=== PATIENT | female | born 1960 | race Caucasian/White ===

== ENCOUNTER → 2020-04-23 11:34 | Outpatient (BNVA) | payer OTHER, SELFPAY | PROVIDERS: PCP Internal Medicine; Referring Provider Internal Medicine; Visit Provider Student in an Organized Health Care Education/Training Program | DX: M06.00 Rheumatoid arthritis without rheumatoid factor, unspecified site (principal); M79.7 Fibromyalgia; Z79.899 Other long term (current) drug therapy | CPT/HCPCS: 99214 ==

== ENCOUNTER → 2020-07-28 13:25 | Outpatient (BNVA) | payer OTHER, SELFPAY | PROVIDERS: PCP Internal Medicine; Referring Provider Internal Medicine; Visit Provider Student in an Organized Health Care Education/Training Program | DX: Z13.89 Encounter for screening for other disorder (principal) | CPT/HCPCS: Q3014 ==

== ENCOUNTER 2020-08-03 11:02 | Outpatient (REF) | payer OTHER, SELFPAY ==
--- NOTE | 2020-08-03 11:26 | XR_ITS ---
EXAMINATION: BILATERAL KNEE X-RAY CLINICAL INFORMATION: Rheumatoid arthritis COMPARISON: Previous x-rays December 2015 TECHNIQUE: 3 views of each knee FINDINGS: Right: No fracture or dislocation is seen. There is mild valgus angulation at the knee joint. There is arthritis at the medial femoral tibial and patellofemoral joints with joint space narrowing and osteophyte formation. There is no appreciable joint effusion. Left: Bone alignment is normal. No fracture or dislocation is seen. There are small osteophytes at the patellofemoral and femoral tibial joint. There is mild joint space narrowing at the medial femoral tibial joint. There is no significant joint effusion. XR/XR knee LT 3V IMPRESSION: Bilateral osteoarthritis, right greater than left.
--- NOTE | 2020-08-03 11:26 | XR_ITS ---
EXAMINATION: BILATERAL KNEE X-RAY CLINICAL INFORMATION: Rheumatoid arthritis COMPARISON: Previous x-rays December 2015 TECHNIQUE: 3 views of each knee FINDINGS: Right: No fracture or dislocation is seen. There is mild valgus angulation at the knee joint. There is arthritis at the medial femoral tibial and patellofemoral joints with joint space narrowing and osteophyte formation. There is no appreciable joint effusion. Left: Bone alignment is normal. No fracture or dislocation is seen. There are small osteophytes at the patellofemoral and femoral tibial joint. There is mild joint space narrowing at the medial femoral tibial joint. There is no significant joint effusion. XR/XR knee RT 3V IMPRESSION: Bilateral osteoarthritis, right greater than left.
[2020-08-03 11:55] LABS: MANUAL DIFF FLAG NO
[2020-08-03 11:57] LABS: Basophils Absolute Auto 0.1 X10*3/uL (0.0-0.2); Basophils Percent Auto 0.9 % (0-2); Eosinophils Absolute Auto 0.1 X10*3/uL (0.0-0.4); Hemoglobin 11.1 g/dl (12.0-16.0); Imm Gran Abs Auto 0.02 X10*3/uL (0.00-0.03); Imm Gran Pct Auto 0.4 % (0.0-0.4); Lymphocytes Absolute Auto 1.9 X10*3/uL (1.2-4.9); Lymphocytes Percent Auto 33.8 % (20-40); Mean Corpuscular HGB Conc 31.7 g/dl (31.0-35.0); Mean Corpuscular Volume 94.6 fL (80-98); Mean Platelet Volume 11.2 fL (9.4-12.3); Monocytes Absolute Auto 0.3 X10*3/uL (0.1-1.2); Monocytes Percent Auto 5.7 % (2-11); Neutrophils Absolute Auto 3.2 X10*3/uL (2.0-8.3); Neutrophils Percent Auto 57.2 % (45-73); Platelet Count 225 X10*3/uL (160-400); Red Cell Distribution Width 13.8 % (11.0-16.0); White Blood Count 5.6 X10*3/uL (4.8-10.8)
[2020-08-03 12:24] LABS: Alanine Aminotransferase 16 U/L (0-31); Albumin Level 3.8 g/dL (3.5-5.0); Alkaline Phosphatase 67 U/L (39-117); Anion Gap 11 (12-20); Aspartate Amino Transferase 17 U/L (5-31); Bilirubin Total 0.4 mg/dL (0.0-1.0); Blood Urea Nitrogen 20 mg/dL (9-16); C Reactive Protein 0.04 mg/dL (< or = 0.50); Calcium 8.8 mg/dL (8.4-10.2); Carbon Dioxide 29 mmol/L (22-29); Chloride 106 mmol/L (96-108); Estimated Glomerular Filt Rate > 60; Glucose Random 96 mg/dL (60-115); Potassium 4.5 mmol/l (3.3-5.1); Sodium 141 mmol/L (135-145); Total Protein 6.3 g/dL (6.5-8.0)
[2020-08-03 13:30] LABS: Erythrocyte Sedimentation Rate 16 MM/HR (0-20)
== END 2020-08-03 11:03 | disposition home or self-care (01) ==
LOC: HO.LAB 11:02
PROVIDERS: PCP Internal Medicine; Visit Provider Student in an Organized Health Care Education/Training Program
DX: M06.00 Rheumatoid arthritis without rheumatoid factor, unspecified site (principal)
CPT/HCPCS: 36415; 73562; 80053; 85025; 85652; 86140

== ENCOUNTER → 2020-09-25 14:10 | Outpatient (BNVA) | payer OTHER, SELFPAY | PROVIDERS: PCP Internal Medicine; Visit Provider Student in an Organized Health Care Education/Training Program | DX: M06.00 Rheumatoid arthritis without rheumatoid factor, unspecified site (principal); M79.7 Fibromyalgia; Z79.899 Other long term (current) drug therapy | CPT/HCPCS: 99212 ==

== ENCOUNTER 2021-01-15 10:36 | Outpatient (REF) | payer OTHER, SELFPAY ==
[2021-01-15 11:14] LABS: MANUAL DIFF FLAG NO
[2021-01-15 11:30] LABS: Basophils Absolute Auto 0.1 X10*3/uL (0.0-0.2); Eosinophils Absolute Auto 0.2 X10*3/uL (0.0-0.4); Eosinophils Percent Auto 3.2 % (0-4); Hematocrit 36.1 % (37-47); Hemoglobin 11.5 g/dl (12.0-16.0); Imm Gran Abs Auto 0.01 X10*3/uL (0.00-0.03); Imm Gran Pct Auto 0.2 % (0.0-0.4); Lymphocytes Absolute Auto 1.8 X10*3/uL (1.2-4.9); Lymphocytes Percent Auto 35.7 % (20-40); Mean Corpuscular HGB Conc 31.9 g/dl (31.0-35.0); Mean Corpuscular Volume 94.3 fL (80-98); Mean Platelet Volume 10.8 fL (9.4-12.3); Monocytes Absolute Auto 0.3 X10*3/uL (0.1-1.2); Monocytes Percent Auto 6.6 % (2-11); Neutrophils Absolute Auto 2.7 X10*3/uL (2.0-8.3); Neutrophils Percent Auto 53.3 % (45-73); Platelet Count 234 X10*3/uL (160-400); Red Blood Count 3.83 X10*6/uL (4.20-5.50)
[2021-01-15 12:00] LABS: C Reactive Protein 0.05 mg/dL (< or = 0.50)
[2021-01-15 12:03] LABS: Potassium 4.4 mmol/L (3.3-5.1)
[2021-01-15 12:05] LABS: Alanine Aminotransferase 11 U/L (0-31); Albumin Level 3.8 g/dL (3.5-5.0); Alkaline Phosphatase 68 U/L (39-117); Anion Gap 8 (12-20); Aspartate Amino Transferase 16 U/L (5-31); Bilirubin Total 0.6 mg/dL (0.0-1.0); Blood Urea Nitrogen 18 mg/dL (9-16); Calcium 9.2 mg/dL (8.4-10.2); Carbon Dioxide 29 mmol/L (22-29); Chloride 107 mmol/L (96-108); Estimated Glomerular Filt Rate > 60; Glucose Random 77 mg/dL (60-115); Sodium 140 mmol/L (135-145); Total Protein 6.2 g/dL (6.5-8.0)
[2021-01-15 12:20] LABS: Erythrocyte Sedimentation Rate 14 MM/HR (0-20)
== END 2021-01-15 10:37 | disposition home or self-care (01) ==
LOC: HO.LAB 10:36
PROVIDERS: PCP Internal Medicine; Visit Provider Student in an Organized Health Care Education/Training Program
DX: M06.00 Rheumatoid arthritis without rheumatoid factor, unspecified site (principal)
CPT/HCPCS: 36415; 80053; 85025; 85652; 86140

== ENCOUNTER → 2021-01-20 12:13 | Outpatient (BNVA) | payer OTHER, SELFPAY | PROVIDERS: PCP Internal Medicine; Visit Provider Student in an Organized Health Care Education/Training Program | DX: M06.00 Rheumatoid arthritis without rheumatoid factor, unspecified site (principal); M79.7 Fibromyalgia; Z79.899 Other long term (current) drug therapy | CPT/HCPCS: 99212 ==

== ENCOUNTER 2021-06-25 08:47 | Outpatient (REF) | payer OTHER, SELFPAY ==
[2021-06-25 09:44] LABS: MANUAL DIFF FLAG NO
[2021-06-25 09:58] LABS: Basophils Percent Auto 0.8 % (0-2); Eosinophils Absolute Auto 0.2 X10*3/uL (0.0-0.4); Eosinophils Percent Auto 4.3 % (0-4); Hematocrit 35.7 % (37.0-47.0); Hemoglobin 11.6 g/dl (12.0-16.0); Imm Gran Abs Auto 0.01 X10*3/uL (0.00-0.03); Imm Gran Pct Auto 0.2 % (0.0-0.4); Lymphocytes Percent Auto 36.7 % (20-40); Mean Corpuscular HGB Conc 32.5 g/dl (31.0-35.0); Mean Corpuscular Hemoglobin 30.4 pg (27.0-33.0); Mean Corpuscular Volume 93.7 fL (80.0-98.0); Mean Platelet Volume 10.6 fL (9.4-12.3); Monocytes Absolute Auto 0.4 X10*3/uL (0.1-1.2); Neutrophils Absolute Auto 2.7 x10*3/uL (2.0-8.3); Platelet Count 242 X10*3/uL (160-400); Red Blood Count 3.81 X10*6/uL (4.20-5.50); Red Cell Distribution Width 13.9 % (11.0-16.0); White Blood Count 5.3 X10*3/uL (4.8-10.8)
[2021-06-25 10:35] LABS: Alanine Aminotransferase 16 U/L (0-31); Alkaline Phosphatase 106 U/L (39-117); Anion Gap 10 (12-20); Aspartate Amino Transferase 19 U/L (5-31); Bilirubin Total 0.6 mg/dL (0.0-1.0); Blood Urea Nitrogen 16 mg/dL (9-16); C Reactive Protein 0.04 mg/dL (< or = 0.50); Calcium 9.4 mg/dL (8.4-10.2); Carbon Dioxide 26 mmol/L (22-29); Chloride 109 mmol/L (96-108); Estimated Glomerular Filt Rate > 60; Glucose Random 93 mg/dL (60-115); Potassium 4.2 mmol/L (3.3-5.1); Sodium 141 mmol/L (135-145); Total Protein 6.7 g/dL (6.5-8.0)
[2021-06-25 10:38] LABS: Erythrocyte Sedimentation Rate 16 MM/HR (0-20)
== END 2021-06-25 08:48 | disposition home or self-care (01) ==
LOC: HO.LAB 08:47
PROVIDERS: PCP Internal Medicine; Visit Provider Nurse Practitioner Family
DX: M06.00 Rheumatoid arthritis without rheumatoid factor, unspecified site (principal); M79.7 Fibromyalgia; Z79.899 Other long term (current) drug therapy
CPT/HCPCS: 36415; 80053; 85025; 85652; 86140; 99212

== ENCOUNTER 2021-09-23 10:49 | Outpatient (REF) | payer OTHER, SELFPAY ==
[2021-09-23 11:33] LABS: MANUAL DIFF FLAG NO
[2021-09-23 11:44] LABS: Basophils Percent Auto 0.7 % (0-2); Eosinophils Absolute Auto 0.2 X10*3/uL (0.0-0.4); Eosinophils Percent Auto 4.3 % (0-4); Hemoglobin 11.8 g/dl (12.0-16.0); Imm Gran Abs Auto 0.02 X10*3/uL (0.00-0.03); Imm Gran Pct Auto 0.4 % (0.0-0.4); Lymphocytes Absolute Auto 2.1 X10*3/uL (1.2-4.9); Lymphocytes Percent Auto 36.7 % (20-40); Mean Corpuscular HGB Conc 31.9 g/dl (31.0-35.0); Mean Corpuscular Hemoglobin 30.2 pg (27.0-33.0); Mean Corpuscular Volume 94.6 fL (80.0-98.0); Mean Platelet Volume 10.6 fL (9.4-12.3); Monocytes Absolute Auto 0.3 X10*3/uL (0.1-1.2); Monocytes Percent Auto 5.9 % (2-11); Neutrophils Absolute Auto 2.9 x10*3/uL (2.0-8.3); Platelet Count 246 X10*3/uL (160-400); Red Blood Count 3.91 X10*6/uL (4.20-5.50); Red Cell Distribution Width 13.9 % (11.0-16.0); White Blood Count 5.6 X10*3/uL (4.8-10.8)
[2021-09-23 12:33] LABS: Erythrocyte Sedimentation Rate 13 MM/HR (0-20)
[2021-09-23 13:16] LABS: Alanine Aminotransferase 11 U/L (0-31); Alkaline Phosphatase 77 U/L (39-117); Anion Gap 9 (12-20); Aspartate Amino Transferase 16 U/L (5-31); Bilirubin Total 0.6 mg/dL (0.0-1.0); Blood Urea Nitrogen 19 mg/dL (9-16); C Reactive Protein 0.03 mg/dL (< or = 0.50); Calcium 9.3 mg/dL (8.4-10.2); Carbon Dioxide 30 mmol/L (22-29); Chloride 108 mmol/L (96-108); Estimated Glomerular Filt Rate > 60; Glucose Random 80 mg/dL (60-115); Potassium 4.7 mmol/L (3.3-5.1); Sodium 142 mmol/L (135-145); Total Protein 6.7 g/dL (6.5-8.0)
== END 2021-09-23 10:50 | disposition home or self-care (01) ==
LOC: HO.LAB 10:49
PROVIDERS: PCP Internal Medicine; Visit Provider Nurse Practitioner Family
DX: M06.00 Rheumatoid arthritis without rheumatoid factor, unspecified site (principal); M79.7 Fibromyalgia; Z79.899 Other long term (current) drug therapy
CPT/HCPCS: 36415; 80053; 85025; 85652; 86140; 99212

== ENCOUNTER 2022-04-11 12:33 | Outpatient (REF) | payer OTHER, SELFPAY ==
[2022-04-11 12:56] LABS: MANUAL DIFF FLAG NO
[2022-04-11 13:13] LABS: Basophils Absolute Auto 0.1 X10*3/uL (0.0-0.2); Eosinophils Absolute Auto 0.2 X10*3/uL (0.0-0.4); Eosinophils Percent Auto 3.4 % (0-4); Hematocrit 33.9 % (37.0-47.0); Hemoglobin 10.9 g/dl (12.0-16.0); Imm Gran Abs Auto 0.02 X10*3/uL (0.00-0.03); Imm Gran Pct Auto 0.3 % (0.0-0.4); Lymphocytes Absolute Auto 1.7 X10*3/uL (1.2-4.9); Lymphocytes Percent Auto 28.8 % (20-40); Mean Corpuscular HGB Conc 32.2 g/dl (31.0-35.0); Mean Corpuscular Volume 93.4 fL (80.0-98.0); Mean Platelet Volume 10.4 fL (9.4-12.3); Monocytes Absolute Auto 0.4 X10*3/uL (0.1-1.2); Monocytes Percent Auto 6.5 % (2-11); Neutrophils Absolute Auto 3.5 x10*3/uL (2.0-8.3); Platelet Count 240 X10*3/uL (160-400); Red Blood Count 3.63 X10*6/uL (4.20-5.50); Red Cell Distribution Width 13.7 % (11.0-16.0); White Blood Count 5.9 X10*3/uL (4.8-10.8)
[2022-04-11 13:54] LABS: Erythrocyte Sedimentation Rate 21 MM/HR (0-20)
[2022-04-11 14:04] LABS: Alanine Aminotransferase 13 U/L (0-31); Albumin Level 3.8 g/dL (3.5-5.0); Alkaline Phosphatase 77 U/L (39-117); Anion Gap 12 (12-20); Aspartate Amino Transferase 16 U/L (5-31); Bilirubin Total 0.3 mg/dL (0.0-1.0); Blood Urea Nitrogen 15 mg/dL (9-16); C Reactive Protein 0.06 mg/dL (< or = 0.50); Calcium 8.8 mg/dL (8.4-10.2); Carbon Dioxide 25 mmol/L (22-29); Chloride 108 mmol/L (96-108); Estimated Glomerular Filt Rate > 60; Glucose Random 79 mg/dL (60-115); Potassium 3.9 mmol/L (3.3-5.1); Sodium 141 mmol/L (135-145); Total Protein 6.3 g/dL (6.5-8.0)
== END 2022-04-11 12:34 | disposition home or self-care (01) ==
LOC: HO.LAB 12:33
PROVIDERS: Visit Provider Nurse Practitioner Family
DX: M06.00 Rheumatoid arthritis without rheumatoid factor, unspecified site (principal)
CPT/HCPCS: 36415; 80053; 85025; 85652; 86140

== ENCOUNTER 2022-04-12 10:50 | Outpatient (REF) | payer OTHER, SELFPAY ==
[2022-04-12 13:38] LABS: MANUAL DIFF FLAG NO
[2022-04-12 13:43] LABS: Basophils Absolute Auto 0.1 X10*3/uL (0.0-0.2); Basophils Percent Auto 0.9 % (0-2); Eosinophils Absolute Auto 0.2 X10*3/uL (0.0-0.4); Eosinophils Percent Auto 3.9 % (0-4); Hematocrit 35.1 % (37.0-47.0); Hemoglobin 11.3 g/dl (12.0-16.0); Imm Gran Abs Auto 0.01 X10*3/uL (0.00-0.03); Imm Gran Pct Auto 0.2 % (0.0-0.4); Lymphocytes Absolute Auto 1.7 X10*3/uL (1.2-4.9); Lymphocytes Percent Auto 31.8 % (20-40); Mean Corpuscular HGB Conc 32.2 g/dl (31.0-35.0); Mean Corpuscular Hemoglobin 30.1 pg (27.0-33.0); Mean Corpuscular Volume 93.6 fL (80.0-98.0); Monocytes Absolute Auto 0.3 X10*3/uL (0.1-1.2); Monocytes Percent Auto 5.9 % (2-11); Neutrophils Absolute Auto 3.1 x10*3/uL (2.0-8.3); Neutrophils Percent Auto 57.3 % (45-73); Platelet Count 247 X10*3/uL (160-400); Red Blood Count 3.75 X10*6/uL (4.20-5.50); Red Cell Distribution Width 13.7 % (11.0-16.0); White Blood Count 5.4 X10*3/uL (4.8-10.8)
[2022-04-12 13:59] LABS: Alanine Aminotransferase 14 U/L (0-31); Aspartate Amino Transferase 18 U/L (5-31); C Reactive Protein 0.05 mg/dL (< or = 0.50); Estimated Glomerular Filt Rate > 60
[2022-04-12 14:30] LABS: Erythrocyte Sedimentation Rate 20 MM/HR (0-20)
== END 2022-04-12 10:51 | disposition home or self-care (01) ==
LOC: HO.10HDL 10:50
PROVIDERS: Visit Provider Nurse Practitioner Family
DX: M06.00 Rheumatoid arthritis without rheumatoid factor, unspecified site (principal); Z79.899 Other long term (current) drug therapy
CPT/HCPCS: 36415; 82565; 84450; 84460; 85025; 85652; 86140; 99212

== ENCOUNTER 2022-07-11 11:22 | Outpatient (REF) | payer OTHER, SELFPAY ==
[2022-07-11 11:34] LABS: MANUAL DIFF FLAG NO
[2022-07-11 11:43] LABS: Basophils Percent Auto 0.8 % (0-2); Eosinophils Absolute Auto 0.2 X10*3/uL (0.0-0.4); Eosinophils Percent Auto 4.1 % (0-4); Hematocrit 34.7 % (37.0-47.0); Hemoglobin 11.3 g/dl (12.0-16.0); Imm Gran Abs Auto 0.02 X10*3/uL (0.00-0.03); Imm Gran Pct Auto 0.4 % (0.0-0.4); Lymphocytes Percent Auto 19.1 % (20-40); Mean Corpuscular HGB Conc 32.6 g/dl (31.0-35.0); Mean Corpuscular Hemoglobin 30.1 pg (27.0-33.0); Mean Corpuscular Volume 92.5 fL (80.0-98.0); Monocytes Absolute Auto 0.5 X10*3/uL (0.1-1.2); Monocytes Percent Auto 10.5 % (2-11); Neutrophils Absolute Auto 3.3 x10*3/uL (2.0-8.3); Neutrophils Percent Auto 65.1 % (45-73); Platelet Count 236 X10*3/uL (160-400); Red Blood Count 3.75 X10*6/uL (4.20-5.50); Red Cell Distribution Width 13.8 % (11.0-16.0); White Blood Count 5.1 X10*3/uL (4.8-10.8)
[2022-07-11 12:22] LABS: Erythrocyte Sedimentation Rate 23 MM/HR (0-20)
[2022-07-11 12:36] LABS: Alanine Aminotransferase 12 U/L (0-31); Aspartate Amino Transferase 17 U/L (5-31); Estimated Glomerular Filt Rate > 60; Ferritin 75 ng/mL (10-250); Iron 39 mcg/dL (30-160); Percent Iron Saturation 18 % (15-50); Total Iron Binding Capacity 218 mcg/dL (228-428); Unsaturated Iron Binding 179 ug/dL
[2022-07-11 13:04] LABS: Folate 14.7 ng/mL (> or = 4.0); Vitamin B12 > 2000 pg/mL (200-900)
== END 2022-07-11 11:23 | disposition home or self-care (01) ==
LOC: HO.LAB 11:22
PROVIDERS: Visit Provider Nurse Practitioner Family
DX: D64.9 Anemia, unspecified (principal); M06.00 Rheumatoid arthritis without rheumatoid factor, unspecified site; Z79.899 Other long term (current) drug therapy
CPT/HCPCS: 36415; 82565; 82607; 82728; 82746; 83540; 84450; 84460; 85025; 85652; 86140

== ENCOUNTER → 2022-08-09 13:05 | Outpatient (BNVA) | payer OTHER, SELFPAY | PROVIDERS: Visit Provider Nurse Practitioner Family | DX: M06.00 Rheumatoid arthritis without rheumatoid factor, unspecified site (principal); M79.7 Fibromyalgia; M79.18 Myalgia, other site; D64.9 Anemia, unspecified; Z79.899 Other long term (current) drug therapy | CPT/HCPCS: 99212 ==

== ENCOUNTER 2022-08-12 10:36 | Outpatient (REF) | payer OTHER, SELFPAY ==
--- NOTE | ~2022-08-12 | XR_ITS ---
EXAMINATION: XR SACROILIAC JOINTS CLINICAL INFORMATION: Meralgia COMPARISON: None TECHNIQUE: Four views of the sacroiliac joints FINDINGS: Mild loss of bilateral sacroiliac joint space with subchondral sclerosis. Sclerosis and irregularity of the pubic symphysis. No acute fracture or dislocation. Few calcified phleboliths in the pelvis. XR/XR sacroiliac joint min 3V IMPRESSION: Mild loss of bilateral sacroiliac joint space with subchondral sclerosis which could be seen in setting of degenerative change, sacroiliitis, or osteitis condensans ilii. Sclerosis and irregularity of the pubic symphysis, which may reflect osteitis pubis.
== END 2022-08-12 10:37 | disposition home or self-care (01) ==
LOC: HO.XRAY 10:36
PROVIDERS: Visit Provider Nurse Practitioner Family
DX: M79.18 Myalgia, other site (principal)
CPT/HCPCS: 72202

== ENCOUNTER 2022-10-25 13:52 | Outpatient (REF) | payer OTHER, SELFPAY ==
--- NOTE | ~2022-10-25 | XR_ITS ---
EXAMINATION: XR HAND/WRIST, RIGHT CLINICAL INFORMATION: Pain. COMPARISON: None available. TECHNIQUE: PA, lateral, and oblique views of the right hand and wrist, together with a dedicated navicular view. FINDINGS: The bones and soft tissues are normal. No fracture. Alignment is anatomic. Joint spaces are maintained. No erosions or soft tissue calcifications. XR/XR hand wrist RT IMPRESSION: Normal radiographs of the hand and wrist. EXAMINATION: XR HAND/WRIST, LEFT CLINICAL INFORMATION: Pain. COMPARISON: None available. TECHNIQUE: PA, lateral, and oblique views of the left hand and wrist, together with a dedicated navicular view. FINDINGS: The bones and soft tissues are normal. No fracture. Alignment is anatomic. Joint spaces are maintained. No erosions or soft tissue calcifications.
--- NOTE | ~2022-10-25 | XR_ITS ---
EXAMINATION: XR HAND/WRIST, RIGHT CLINICAL INFORMATION: Pain. COMPARISON: None available. TECHNIQUE: PA, lateral, and oblique views of the right hand and wrist, together with a dedicated navicular view. FINDINGS: The bones and soft tissues are normal. No fracture. Alignment is anatomic. Joint spaces are maintained. No erosions or soft tissue calcifications. XR/XR hand wrist LT IMPRESSION: Normal radiographs of the hand and wrist. EXAMINATION: XR HAND/WRIST, LEFT CLINICAL INFORMATION: Pain. COMPARISON: None available. TECHNIQUE: PA, lateral, and oblique views of the left hand and wrist, together with a dedicated navicular view. FINDINGS: The bones and soft tissues are normal. No fracture. Alignment is anatomic. Joint spaces are maintained. No erosions or soft tissue calcifications.
[2022-10-25 15:00] LABS: MANUAL DIFF FLAG NO
[2022-10-25 15:16] LABS: Basophils Absolute Auto 0.1 X10*3/uL (0.0-0.2); Basophils Percent Auto 0.8 % (0-2); Eosinophils Absolute Auto 0.2 X10*3/uL (0.0-0.4); Eosinophils Percent Auto 3.4 % (0-4); Hematocrit 34.6 % (37.0-47.0); Hemoglobin 11.1 g/dl (12.0-16.0); Imm Gran Abs Auto 0.06 X10*3/uL (0.00-0.03); Imm Gran Pct Auto 0.9 % (0.0-0.4); Lymphocytes Absolute Auto 1.8 X10*3/uL (1.2-4.9); Lymphocytes Percent Auto 27.4 % (20-40); Mean Corpuscular HGB Conc 32.1 g/dl (31.0-35.0); Mean Corpuscular Volume 93.5 fL (80.0-98.0); Mean Platelet Volume 10.7 fL (9.4-12.3); Monocytes Absolute Auto 0.4 X10*3/uL (0.1-1.2); Monocytes Percent Auto 5.6 % (2-11); Neutrophils Percent Auto 61.9 % (45-73); Platelet Count 257 X10*3/uL (160-400); Red Cell Distribution Width 13.9 % (11.0-16.0); White Blood Count 6.5 X10*3/uL (4.8-10.8)
[2022-10-25 15:50] LABS: Alanine Aminotransferase 9 U/L (0-31); Albumin Level 3.8 g/dL (3.5-5.0); Alkaline Phosphatase 89 U/L (39-117); Anion Gap 9 (12-20); Aspartate Amino Transferase 14 U/L (5-31); Bilirubin Total 0.4 mg/dL (0.0-1.0); Blood Urea Nitrogen 16 mg/dL (9-16); Calcium 8.8 mg/dL (8.4-10.2); Carbon Dioxide 27 mmol/L (22-29); Chloride 110 mmol/L (96-108); Estimated Glomerular Filt Rate > 60; Glucose Random 100 mg/dL (60-115); Potassium 4.4 mmol/L (3.3-5.1); Sodium 142 mmol/L (135-145); Total Protein 6.3 g/dL (6.5-8.0)
[2022-10-25 15:57] LABS: Erythrocyte Sedimentation Rate 25 MM/HR (0-20)
[2022-10-26 07:42] LABS: HBS Num1 0.38 mIU/mL (0-7.99); HBc Num1 0.11 S/CO (0.00-0.79); HBsAGNum1 0.28 S/CO (0.00-0.99); Hepatitis A Antibody IgM 0.51 Index (0-0.79); Hepatitis B Core Antibody Nonreactive (Nonreactive); Hepatitis B Surface Antigen Negative (Negative); ~HepC Num1 0.11 S/CO (0.00-0.79); ~Hepatitis A Antibody IgM Nonreactive (Nonreactive); ~Hepatitis B Surface Antibody NONREACTIVE (Nonreactive); ~Hepatitis C Antibody Nonreactive (Nonreactive)
[2022-10-27 15:13] LABS: TS Negative Control Passed; TS Panel A 0; TS Panel B 3; TS Positive Control Passed; TSpotTB Negative (Negative)
== END 2022-10-25 13:53 | disposition home or self-care (01) ==
LOC: HO.LAB 13:52
PROVIDERS: Visit Provider Nurse Practitioner Family
DX: M79.641 Pain in right hand (principal); M79.642 Pain in left hand; M06.00 Rheumatoid arthritis without rheumatoid factor, unspecified site; M79.7 Fibromyalgia; D64.9 Anemia, unspecified; Z79.899 Other long term (current) drug therapy
CPT/HCPCS: 36415; 73110; 73130; 80053; 85025; 85652; 86140; 86481; 86704; 86706; 86709; 86803; 87340; 99212

== ENCOUNTER 2022-12-02 11:47 | Outpatient (REF) | payer OTHER, SELFPAY ==
[2022-12-02 12:08] LABS: MANUAL DIFF FLAG NO
[2022-12-02 13:16] LABS: Basophils Absolute Auto 0.1 X10*3/uL (0.0-0.2); Basophils Percent Auto 0.7 % (0-2); Eosinophils Absolute Auto 0.2 X10*3/uL (0.0-0.4); Eosinophils Percent Auto 2.7 % (0-4); Hematocrit 34.4 % (37.0-47.0); Imm Gran Abs Auto 0.03 X10*3/uL (0.00-0.03); Imm Gran Pct Auto 0.4 % (0.0-0.4); Lymphocytes Percent Auto 28.3 % (20-40); Mean Corpuscular Hemoglobin 29.8 pg (27.0-33.0); Mean Corpuscular Volume 93.2 fL (80.0-98.0); Mean Platelet Volume 10.2 fL (9.4-12.3); Monocytes Absolute Auto 0.4 X10*3/uL (0.1-1.2); Monocytes Percent Auto 5.5 % (2-11); Neutrophils Absolute Auto 4.4 x10*3/uL (2.0-8.3); Neutrophils Percent Auto 62.4 % (45-73); Platelet Count 311 X10*3/uL (160-400); Red Blood Count 3.69 X10*6/uL (4.20-5.50); Red Cell Distribution Width 13.6 % (11.0-16.0); White Blood Count 7.1 X10*3/uL (4.8-10.8)
[2022-12-02 13:53] LABS: Alanine Aminotransferase 11 U/L (0-31); Albumin Level 3.8 g/dL (3.5-5.0); Alkaline Phosphatase 88 U/L (39-117); Anion Gap 8 (12-20); Aspartate Amino Transferase 16 U/L (5-31); Bilirubin Total 0.4 mg/dL (0.0-1.0); Blood Urea Nitrogen 16 mg/dL (9-16); Calcium 8.6 mg/dL (8.4-10.2); Carbon Dioxide 28 mmol/L (22-29); Chloride 111 mmol/L (96-108); Estimated Glomerular Filt Rate > 60; Glucose Random 71 mg/dL (60-115); Potassium 4.1 mmol/L (3.3-5.1); Sodium 143 mmol/L (135-145); Total Protein 6.5 g/dL (6.5-8.0)
[2022-12-02 14:00] LABS: Erythrocyte Sedimentation Rate 34 MM/HR (0-20)
== END 2022-12-02 11:48 | disposition home or self-care (01) ==
LOC: HO.LAB 11:47
PROVIDERS: Visit Provider Nurse Practitioner Family
DX: M06.00 Rheumatoid arthritis without rheumatoid factor, unspecified site (principal)
CPT/HCPCS: 36415; 80053; 85025; 85652; 86140

== ENCOUNTER → 2022-12-06 14:16 | Outpatient (BNVA) | payer OTHER, SELFPAY | PROVIDERS: Visit Provider Nurse Practitioner Family | DX: M06.00 Rheumatoid arthritis without rheumatoid factor, unspecified site (principal); M79.7 Fibromyalgia; D64.9 Anemia, unspecified; Z79.899 Other long term (current) drug therapy | CPT/HCPCS: 99212 ==

== ENCOUNTER 2023-03-10 11:23 | Outpatient (REF) | payer OTHER, SELFPAY ==
[2023-03-10 11:30] LABS: MANUAL DIFF FLAG NO
[2023-03-10 11:44] LABS: Basophils Percent Auto 0.6 % (0-2); Eosinophils Absolute Auto 0.2 X10*3/uL (0.0-0.4); Eosinophils Percent Auto 2.4 % (0-4); Hematocrit 35.1 % (37.0-47.0); Hemoglobin 11.4 g/dl (12.0-16.0); Imm Gran Abs Auto 0.02 X10*3/uL (0.00-0.03); Imm Gran Pct Auto 0.3 % (0.0-0.4); Lymphocytes Absolute Auto 1.4 X10*3/uL (1.2-4.9); Lymphocytes Percent Auto 19.3 % (20-40); Mean Corpuscular HGB Conc 32.5 g/dl (31.0-35.0); Mean Corpuscular Hemoglobin 29.6 pg (27.0-33.0); Mean Corpuscular Volume 91.2 fL (80.0-98.0); Mean Platelet Volume 10.2 fL (9.4-12.3); Monocytes Absolute Auto 0.4 X10*3/uL (0.1-1.2); Monocytes Percent Auto 5.9 % (2-11); Neutrophils Absolute Auto 5.1 x10*3/uL (2.0-8.3); Neutrophils Percent Auto 71.5 % (45-73); Platelet Count 266 X10*3/uL (160-400); Red Blood Count 3.85 X10*6/uL (4.20-5.50); Red Cell Distribution Width 13.9 % (11.0-16.0); White Blood Count 7.1 X10*3/uL (4.8-10.8)
[2023-03-10 12:26] LABS: Erythrocyte Sedimentation Rate 19 MM/HR (0-20)
[2023-03-10 12:36] LABS: Alanine Aminotransferase 10 U/L (0-31); Albumin Level 3.7 g/dL (3.5-5.0); Alkaline Phosphatase 80 U/L (39-117); Anion Gap 12 (12-20); Aspartate Amino Transferase 16 U/L (5-31); Bilirubin Total 0.5 mg/dL (0.0-1.0); Blood Urea Nitrogen 16 mg/dL (9-16); C Reactive Protein < 0.10 mg/dL (< or = 0.50); Calcium 8.8 mg/dL (8.4-10.2); Carbon Dioxide 25 mmol/L (22-29); Chloride 110 mmol/L (96-108); Estimated Glomerular Filt Rate > 60; Glucose Random 76 mg/dL (60-115); Potassium 3.6 mmol/L (3.3-5.1); Sodium 143 mmol/L (135-145); Total Protein 6.8 g/dL (6.5-8.0)
== END 2023-03-10 11:24 | disposition home or self-care (01) ==
LOC: HO.LAB 11:23
PROVIDERS: PCP Internal Medicine; Visit Provider Nurse Practitioner Family
DX: M06.00 Rheumatoid arthritis without rheumatoid factor, unspecified site (principal)
CPT/HCPCS: 36415; 80053; 85025; 85652; 86140

== ENCOUNTER 2023-03-14 09:39 | Outpatient (AMB) | payer OTHER, SELFPAY ==
[2023-03-14 09:50] VITALS: BP 124/72; PULSE 64; TEMP 36.2; O2SAT 98; BMI 28.8
--- NOTE | 2023-03-14 09:50 | MHC.OFFVIS ---
Intake Vital Signs 03/14/23 09:50 Height 4 ft 11 in Weight 142 lb 6.698 oz BMI 28.8 BP 124/72 Blood Pressure Location Rt brachial Position Sitting Pulse 64 Pulse Source Pulse Oximeter Temp 97.2 F Temp Source Skin Pulse Oximetry (%) 98 Intake Visit Reasons: Rheumatoid arthritis Intake Note: Pt seen today for RA follow up Baggage Checker Required: No Accompanied by: Self / Same As Patient Allergies No Known Allergies Allergy (Verified 03/14/23 09:52) Medication List - Last Reconciled 03/14/23 by Sandra Olson MD baclofen 10 mg PO DAILY clonazepam 0.5 mg PO BID fluoxetine 40 mg PO DAILY PRN folic acid 1 mg PO DAILY methotrexate sodium 25 mg (10 x 2.5 mg) PO QWEEK multivitamin 1 tab PO DAILY omeprazole 20 mg PO DAILY rizatriptan 5 mg PO Q2-4H PRN zolpidem 10 mg PO BEDTIME PRN HPI HPI Comments History of Present Illness Details 62yoF presents for follow-up of seronegative rheumatoid arthritis. Last seen by Flores Mancini 12/13. Currently taking methotrexate 10 tabs weekly, 5 tabs in the am and 5 tabs in the pm. She is taking her folic acid. She states that she has good days and bad days, mostly related to her fibromyalgia. She states her fibromyalgia symptoms are most bothersome at this time. She follows with a psychiatrist and therapist. She is taking fluoxetine, clonazepam, She takes Ambien as needed. She continues to walk daily. She reports pain, some swelling and redness that presents in one joint at a time. Sometimes the great toe, or the little toe, a knee or hands. She states that the pain and swelling can last 1 - 4 days and resolve without intervention. This happens about once a month. She states that since the methotrexate dose was increased to 10 tabs the frequency and severity of these episodes is reduced. PFSH Surgical History Hx of gastric bypass Family History Father Osteoarthritis Social History Alcohol intake: never Patient Tobacco Use Status: Never used Tobacco e-Cigarette/Vaping Use: Never Used Review of Systems Musc Reports myalgias and Reports arthralgias Skin/Breast Reports rash Physical Exam Vital Signs: Last Vital Signs Temp 97.2 F 03/14/23 09:50 Pulse 64 03/14/23 09:50 BP 124/72 03/14/23 09:50 Pulse Ox 98 03/14/23 09:50 BMI result Body Mass Index 28.8 Const General: cooperative, healthy appearing and comfortable Nutritional Appearance: overweight Orientation/consciousness: patient oriented x3 Limitations: no limitations HEENT Head: Yes normocephalic and Yes atraumatic Mouth: moist mucous membranes Resp Effort & Inspection: normal respiratory effort and able to speak in complete sentences Cardio Rate: regular rate Rhythm: regular rhythm Skin General skin exam: no rashes or lesions noted Neuro General: patient oriented x3 Extrem Other: No active synovitis today Numerous fibromyalgia tender points Results Reviewed Results Reviewed: Laboratory Tests MRI OF THE RIGHT HAND WITHOUT AND WITH CONTRAST ? CLINICAL INFORMATION: Seronegative arthritis. ? COMPARISON: X-rays of the right hand performed March 2018. MRI of the left hand ?performed same day. ? TECHNIQUE: ? MRI of the right hand was performed before and after contrast. 8 mL of ? Gadavist contrast was given intravenously for the contrast portion of ?? the exam. ? FINDINGS: ? The bones, joints and soft tissues are normal. ? There are no marginal erosions. There is no articular cartilage ? abnormality, marginal osteophytes or subchondral cysts. ? The muscles and tendons are normal.? IMPRESSION: ? ? Normal MRI of the right hand without and with contrast.? EXAMINATION: ? ? MRI HAND WITH AND WITHOUT CONTRAST, LEFT ? CLINICAL INFORMATION: ? Seronegative arthritis. Patient reports bilateral hand swelling right ? greater than left. ?COMPARISON: ? ? Prior x-rays of the hands March 2018. Additional MRI of the right ? ? hand performed same day. ? TECHNIQUE: ? ? MRI of the left hand was performed before and after contrast. 8 mL of ? ? Gadavist contrast was given intravenously for the contrast portion of ? ? the exam. FINDINGS: ? First carpometacarpal joint: There is cartilage heterogeneity, ? subchondral cystic change and small marginal osteophytes indicative of? mild to moderate osteoarthritis. Third metacarpophalangeal joint: There is a lobulated likely cystic-appearing focus within the distal metaphysis of the metacarpal. This most likely reflects an enthesopathic cyst. A cartilage lesion ?? here is no surrounding edema. There is no joint abnormality. ? There are no marginal erosions. There is no synovitis. The remaining bones, joints and soft tissues are normal. 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 Date of Service: 10/25/22 Procedure(s): XR hand wrist RT Accession Number(s): [id number] EXAMINATION: XR HAND/WRIST, RIGHT CLINICAL INFORMATION: Pain.? COMPARISON: None available.? TECHNIQUE: PA, lateral, and oblique views of the right hand and wrist, together with a dedicated navicular view. FINDINGS: The bones and soft tissues are normal. No fracture. Alignment is anatomic. Joint spaces are maintained. No erosions or soft tissue calcifications.? XR/XR hand wrist RT IMPRESSION: Normal radiographs of the hand and wrist. ? ? EXAMINATION: XR HAND/WRIST, LEFT ? CLINICAL INFORMATION: Pain.? ? COMPARISON: None available.? ? TECHNIQUE: PA, lateral, and oblique views of the left hand and wrist, together with a dedicated navicular view. ? FINDINGS: The bones and soft tissues are normal. No fracture. Alignment is anatomic. Joint spaces are maintained. No erosions or soft tissue calcifications.? ? IMPRESSION: Normal radiographs of the hand and wrist. ? Assessment & Plan Assessment & Plan (1) Seronegative rheumatoid arthritis: Comment: seroneg dx 2019 Methotrexate- September 2018 advanced to 25 mg 2022 Code(s): M06.00 - Rheumatoid arthritis without rheumatoid factor, unspecified site Plan: This is a 62-year-old female with seronegative arthritis who presents for follow-up. Patient gets intermittent pain swelling and redness of different joints including finger, palms, small toe, knees. These episodes last 1-4 days and occur about once a month. Since increasing the methotrexate dose to 25 mg weekly episodes have become less frequent and less severe. Patient had persistently elevated inflammatory markers before. They have normalized. Continue methotrexate 25 mg once weekly. Folic acid 1 mg daily. If patient continues to get recurrent attacks of pain and swelling, will consider adding other DMARDs such as a TNF inhibitor Infectious screening: Hepatitis panel and T spot -ve 2022 Labs before next visit in 3 my (2) Fibromyalgia: Code(s): M79.7 - Fibromyalgia Plan: Stable. Failed Lyrica and Cymbalta in the past. Continue baclofen. Reinforced the importance of daily activity and adequate sleep. Continue follow up with mental health. (3) prison methotrexate user: Code(s): Z79.899 - Other emt intermediate (current) drug therapy Plan: Side effects of MTX were discussed with the patient in detail including oral ulcers, elevated LFTs, abdominal discomfort, and possible pancytopenia. Will monitor with frequent labs to monitor for side effects. Advised patient to take folic acid daily to prevent complications of MTX.? Plan I spent 26 minutes reviewing patient's chart, evaluating patient, ordering diagnostic workup, counseling patient and documenting in the chart Orders: Orders Comprehensive Met. 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
== END 2023-03-14 10:13 | disposition home or self-care (01) ==
PROVIDERS: Visit Provider Student in an Organized Health Care Education/Training Program
DX: M06.00 Rheumatoid arthritis without rheumatoid factor, unspecified site (principal); M79.7 Fibromyalgia; Z79.899 Other long term (current) drug therapy
CPT/HCPCS: 99214

== ENCOUNTER → 2023-03-14 09:39 | Outpatient (BNVA) | payer OTHER, SELFPAY | PROVIDERS: Visit Provider Student in an Organized Health Care Education/Training Program | DX: M06.00 Rheumatoid arthritis without rheumatoid factor, unspecified site (principal); M79.7 Fibromyalgia; Z79.631 Long term (current) use of antimetabolite agent | CPT/HCPCS: 99212 ==

== ENCOUNTER 2023-06-05 11:02 | Outpatient (REF) | payer OTHER, SELFPAY ==
[2023-06-05 11:19] LABS: MANUAL DIFF FLAG NO
[2023-06-05 12:02] LABS: Basophils Absolute Auto 0.1 X10*3/uL (0.0-0.2); Basophils Percent Auto 0.8 % (0-2); Eosinophils Absolute Auto 0.1 X10*3/uL (0.0-0.4); Eosinophils Percent Auto 2.2 % (0-4); Hemoglobin 11.1 g/dl (12.0-16.0); Imm Gran Abs Auto 0.02 X10*3/uL (0.00-0.03); Imm Gran Pct Auto 0.3 % (0.0-0.4); Lymphocytes Absolute Auto 1.8 X10*3/uL (1.2-4.9); Lymphocytes Percent Auto 28.5 % (20-40); Mean Corpuscular HGB Conc 31.7 g/dl (31.0-35.0); Mean Corpuscular Hemoglobin 29.9 pg (27.0-33.0); Mean Corpuscular Volume 94.3 fL (80.0-98.0); Mean Platelet Volume 10.5 fL (9.4-12.3); Monocytes Absolute Auto 0.4 X10*3/uL (0.1-1.2); Monocytes Percent Auto 6.3 % (2-11); Neutrophils Percent Auto 61.9 % (45-73); Platelet Count 265 X10*3/uL (160-400); Red Blood Count 3.71 X10*6/uL (4.20-5.50); Red Cell Distribution Width 14.5 % (11.0-16.0); White Blood Count 6.4 X10*3/uL (4.8-10.8)
[2023-06-05 12:08] LABS: Alanine Aminotransferase 9 U/L (0-31); Albumin Level 3.7 g/dL (3.5-5.0); Alkaline Phosphatase 73 U/L (39-117); Anion Gap 9 (12-20); Aspartate Amino Transferase 17 U/L (5-31); Bilirubin Total 0.4 mg/dL (0.0-1.0); Blood Urea Nitrogen 13 mg/dL (9-16); C Reactive Protein < 0.10 mg/dL (< or = 0.50); Calcium 8.7 mg/dL (8.4-10.2); Carbon Dioxide 27 mmol/L (22-29); Chloride 109 mmol/L (96-108); Estimated Glomerular Filt Rate > 60; Glucose Random 83 mg/dL (60-115); Potassium 4.1 mmol/L (3.3-5.1); Sodium 141 mmol/L (135-145); Total Protein 6.5 g/dL (6.5-8.0)
[2023-06-05 12:39] LABS: Erythrocyte Sedimentation Rate 16 MM/HR (0-20)
== END 2023-06-05 11:03 | disposition home or self-care (01) ==
LOC: HO.LAB 11:02
PROVIDERS: PCP Internal Medicine; Visit Provider Student in an Organized Health Care Education/Training Program
DX: Z79.899 Other long term (current) drug therapy (principal)
CPT/HCPCS: 36415; 80053; 85025; 85652; 86140

== ENCOUNTER 2023-07-18 09:49 | Outpatient (AMB) | payer OTHER, SELFPAY ==
--- NOTE | 2023-07-18 09:53 | A.OFFVIS_ITS ---
Intake Vital Signs 07/18/23 09:54 Height 4 ft 11 in Weight 143 lb 11.862 oz BMI 29.0 BP 132/74 Blood Pressure Location Rt brachial Position Sitting Pulse 73 Pulse Source Pulse Oximeter Intake Visit Reasons: RA Intake Note: Pt last seen 03/14/23, presents today for follow up and test results. Pt reports she is currently on MTX and folic acid. Lapel Padder Blindstitch Required: No Accompanied by: Self / Same As Patient Allergies No Known Allergies Allergy (Verified 07/18/23 09:56) Medication List - Last Reconciled 07/18/23 by Sandra Olson MD baclofen 10 mg PO DAILY clonazepam 0.5 mg PO BID fluoxetine 40 mg PO DAILY PRN folic acid 1 mg PO DAILY methotrexate sodium 25 mg (10 x 2.5 mg) PO QWEEK multivitamin 1 tab PO DAILY omeprazole 20 mg PO DAILY zolpidem 10 mg PO BEDTIME PRN HPI HPI Comments History of Present Illness Details 63yoF presents for follow-up of seronegative rheumatoid arthritis. Currently taking methotrexate 10 tabs weekly, 5 tabs in the am and 5 tabs in the pm. She is taking her folic acid. Patient states that she continues to have good and bad days. Two or 3 weeks ago she started having and swelling of both knees, it lasted about a week. She also continues to have intermittent pain in different joints such as the wrists, fingers, elbows. It does not last long. PFSH Surgical History Hx of gastric bypass Family History Father Osteoarthritis Social History Alcohol intake: never Patient Tobacco Use Status: Never used Tobacco e-Cigarette/Vaping Use: Never Used Review of Systems [facility] Reports myalgias, Reports arthralgias and Reports joint swelling Physical Exam Vital Signs: Last Vital Signs Pulse 73 07/18/23 09:54 BP 132/74 07/18/23 09:54 BMI result Body Mass Index 29.0 Const General: cooperative, healthy appearing and comfortable Nutritional Appearance: overweight Orientation/consciousness: patient oriented x3 Limitations: no limitations HEENT Head: Yes normocephalic and Yes atraumatic Resp Effort & Inspection: normal respiratory effort and able to speak in complete sentences Cardio Rate: regular rate Rhythm: regular rhythm Skin General skin exam: no rashes or lesions noted Neuro General: patient oriented x3 Extrem Other: Mild right knee swelling and pain with flexion and extension Few fibromyalgia tender points No active synovitis otherwise Patient showed me a picture of significant bilateral knee swelling Results Reviewed Results Reviewed: Laboratory Tests MRI OF THE RIGHT HAND WITHOUT AND WITH CONTRAST ? CLINICAL INFORMATION: Seronegative arthritis. ? COMPARISON: X-rays of the right hand performed March 2018. MRI of the left hand ?performed same day. ? TECHNIQUE: ? MRI of the right hand was performed before and after contrast. 8 mL of ? Gadavist contrast was given intravenously for the contrast portion of ?? the exam. ? FINDINGS: ? The bones, joints and soft tissues are normal. ? There are no marginal erosions. There is no articular cartilage ? abnormality, marginal osteophytes or subchondral cysts. ? The muscles and tendons are normal.? IMPRESSION: ? ? Normal MRI of the right hand without and with contrast.? EXAMINATION: ? ? MRI HAND WITH AND WITHOUT CONTRAST, LEFT ? CLINICAL INFORMATION: ? Seronegative arthritis. Patient reports bilateral hand swelling right ? greater than left. ?COMPARISON: ? ? Prior x-rays of the hands March 2018. Additional MRI of the right ? ? hand performed same day. ? TECHNIQUE: ? ? MRI of the left hand was performed before and after contrast. 8 mL of ? ? Gadavist contrast was given intravenously for the contrast portion of ? ? the exam. FINDINGS: ? First carpometacarpal joint: There is cartilage heterogeneity, ? subchondral cystic change and small marginal osteophytes indicative of? mild to moderate osteoarthritis. Third metacarpophalangeal joint: There is a lobulated likely cystic-appearing focus within the distal metaphysis of the metacarpal. This most likely reflects an enthesopathic cyst. A cartilage lesion ?? here is no surrounding edema. There is no joint abnormality. ? There are no marginal erosions. There is no synovitis. The remaining bones, joints and soft tissues are normal. 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 Date of Service: 10/25/22 Procedure(s): XR hand wrist RT Accession Number(s): [id number] EXAMINATION: XR HAND/WRIST, RIGHT CLINICAL INFORMATION: Pain.? COMPARISON: None available.? TECHNIQUE: PA, lateral, and oblique views of the right hand and wrist, together with a dedicated navicular view. FINDINGS: The bones and soft tissues are normal. No fracture. Alignment is anatomic. Joint spaces are maintained. No erosions or soft tissue calcifications.? XR/XR hand wrist RT IMPRESSION: Normal radiographs of the hand and wrist. ? ? EXAMINATION: XR HAND/WRIST, LEFT ? CLINICAL INFORMATION: Pain.? ? COMPARISON: None available.? ? TECHNIQUE: PA, lateral, and oblique views of the left hand and wrist, together with a dedicated navicular view. ? FINDINGS: The bones and soft tissues are normal. No fracture. Alignment is anatomic. Joint spaces are maintained. No erosions or soft tissue calcifications.? ? IMPRESSION: Normal radiographs of the hand and wrist. ? Assessment & Plan Assessment & Plan (1) Seronegative rheumatoid arthritis: Comment: seroneg dx 2018 Methotrexate- September 2018 advanced to 25 mg 2022 Code(s): M06.00 - Rheumatoid arthritis without rheumatoid factor, unspecified site Plan: This is a 63-year-old female with seronegative arthritis who presents for follow-up. On methotrexate 25 mg weekly, split dose. Patient continues to have episodes of synovitis. Discussed different treatment options. Patient opted to switch from oral to to subcu methotrexate 25 mg weekly. Will prescribe. Infectious screening: Hepatitis panel and T spot -ve 2022 Labs before next visit in 3 months (2) Fibromyalgia: Code(s): M79.7 - Fibromyalgia Plan: Stable. Failed Lyrica and Cymbalta in the past. Continue baclofen. Reinforced the importance of daily activity and adequate sleep. Continue follow up with mental health. (3) [facility] methotrexate user: Code(s): Z79.899 - Other senior living (current) drug therapy Plan: Monitor safety Plan I spent 26 minutes reviewing patient's chart, evaluating patient, ordering diagnostic workup, counseling patient and documenting in the chart Orders: Orders Complete Blood Count Auto Diff 3 Months Z79.899 - Other vermin exterminator (current) drug therapy Comprehensive Met. 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
[2023-07-18 09:54] VITALS: BP 132/74; PULSE 73; BMI 29.0
== END 2023-07-18 10:24 | disposition home or self-care (01) ==
PROVIDERS: Visit Provider Student in an Organized Health Care Education/Training Program
DX: M06.00 Rheumatoid arthritis without rheumatoid factor, unspecified site (principal); M79.7 Fibromyalgia; Z79.899 Other long term (current) drug therapy
CPT/HCPCS: 99214

== ENCOUNTER → 2023-07-18 09:49 | Outpatient (BNVA) | payer OTHER, SELFPAY | PROVIDERS: Visit Provider Student in an Organized Health Care Education/Training Program | DX: M06.00 Rheumatoid arthritis without rheumatoid factor, unspecified site (principal); M79.7 Fibromyalgia; Z79.899 Other long term (current) drug therapy | CPT/HCPCS: 99212 ==

== ENCOUNTER 2023-10-13 11:11 | Outpatient (REF) | payer OTHER, SELFPAY ==
[2023-10-13 11:38] LABS: MANUAL DIFF FLAG NO
[2023-10-13 12:48] LABS: Basophils Absolute Auto 0.1 X10*3/uL (0.0-0.2); Basophils Percent Auto 0.7 % (0-2); Eosinophils Absolute Auto 0.3 X10*3/uL (0.0-0.4); Eosinophils Percent Auto 3.9 % (0-4); Hematocrit 34.4 % (37.0-47.0); Hemoglobin 11.1 g/dl (12.0-16.0); Imm Gran Abs Auto 0.02 X10*3/uL (0.00-0.03); Imm Gran Pct Auto 0.3 % (0.0-0.4); Lymphocytes Absolute Auto 1.7 X10*3/uL (1.2-4.9); Lymphocytes Percent Auto 24.7 % (20-40); Mean Corpuscular HGB Conc 32.3 g/dl (31.0-35.0); Mean Corpuscular Hemoglobin 29.8 pg (27.0-33.0); Mean Corpuscular Volume 92.5 fL (80.0-98.0); Mean Platelet Volume 10.3 fL (9.4-12.3); Monocytes Absolute Auto 0.5 X10*3/uL (0.1-1.2); Neutrophils Absolute Auto 4.2 x10*3/uL (2.0-8.3); Neutrophils Percent Auto 63.4 % (45-73); Platelet Count 253 X10*3/uL (160-400); Red Blood Count 3.72 X10*6/uL (4.20-5.50); Red Cell Distribution Width 14.3 % (11.0-16.0); White Blood Count 6.7 X10*3/uL (4.8-10.8)
[2023-10-13 13:38] LABS: Alanine Aminotransferase 14 U/L (0-31); Albumin Level 3.6 g/dL (3.5-5.0); Alkaline Phosphatase 76 U/L (39-117); Anion Gap 11 (12-20); Aspartate Amino Transferase 19 U/L (5-31); Bilirubin Total 0.3 mg/dL (0.0-1.0); Blood Urea Nitrogen 17 mg/dL (9-16); C Reactive Protein < 0.10 mg/dL (< or = 0.50); Calcium 8.7 mg/dL (8.4-10.2); Carbon Dioxide 25 mmol/L (22-29); Chloride 108 mmol/L (96-108); Estimated Glomerular Filt Rate > 60; Glucose Random 90 mg/dL (60-115); Potassium 4.4 mmol/L (3.3-5.1); Sodium 140 mmol/L (135-145); Total Protein 6.4 g/dL (6.5-8.0)
[2023-10-13 13:43] LABS: Erythrocyte Sedimentation Rate 16 MM/HR (0-20)
== END 2023-10-13 11:12 | disposition home or self-care (01) ==
LOC: HO.LAB 11:11
PROVIDERS: PCP Internal Medicine; Visit Provider Student in an Organized Health Care Education/Training Program
DX: Z79.631 Long term (current) use of antimetabolite agent (principal)
CPT/HCPCS: 36415; 80053; 85025; 85652; 86140

== ENCOUNTER 2023-10-17 13:49 | Outpatient (AMB) | payer OTHER, SELFPAY ==
--- NOTE | 2023-10-17 13:54 | A.OFFVIS_ITS ---
Intake Vital Signs 10/17/23 13:55 Height 4 ft 11 in Weight 143 lb 11.862 oz BMI 29.0 BP 136/68 Blood Pressure Location Rt brachial Position Sitting Pulse 88 Pulse Source Pulse Oximeter Pulse Oximetry (%) 96 Oxygen Delivery Method Room Air Intake Visit Reasons: RA/CM Intake Note: Patient last seen 07/18/23 presents today for follow up and test results. Pricing Associate Required: No Accompanied by: Self / Same As Patient Allergies No Known Allergies Allergy (Verified 10/17/23 14:06) Medication List - Last Reconciled 10/17/23 by Sandra Olson MD baclofen 10 mg PO DAILY celecoxib 100 mg PO BID clonazepam 0.5 mg PO BID fluoxetine 40 mg PO DAILY PRN folic acid 1 mg PO DAILY insulin syringe-needle U-100 (BD Insulin Syringe) Use weekly with methotrexate methotrexate sodium 25 mg (10 x 2.5 mg) PO QWEEK methotrexate sodium (PF) 25 mg subcut QWEEK multivitamin 1 tab PO DAILY omeprazole 20 mg PO DAILY zolpidem 10 mg PO BEDTIME PRN HPI HPI Comments History of Present Illness Details 63yoF presents for follow-up of seronegative rheumatoid arthritis. Currently taking methotrexate 10 tabs weekly, 5 tabs in the am and 5 tabs in the pm. She is taking her folic acid. Patient continues to have intermittent flare-ups of her RA. She has been having right knee pain and swelling for the last 2 months. It is not improving spontaneously, she gets intermittent swelling of her right middle finger. PFSH Surgical History Hx of gastric bypass Family History Father Osteoarthritis Social History Alcohol intake: never Patient Tobacco Use Status: Never used Tobacco e-Cigarette/Vaping Use: Never Used Review of Systems [facility] [place] Reports arthralgias and Reports joint swelling Physical Exam Vital Signs: Last Vital Signs Pulse 88 10/17/23 13:55 BP 136/68 10/17/23 13:55 Pulse Ox 96 10/17/23 13:55 Oxygen Delivery Method Room Air 10/17/23 13:55 BMI result Body Mass Index 29.0 Const General: cooperative, healthy appearing and comfortable Nutritional Appearance: overweight Orientation/consciousness: patient oriented x3 Limitations: no limitations HEENT Head: Yes normocephalic and Yes atraumatic Resp Effort & Inspection: normal respiratory effort and able to speak in complete sentences Cardio Rate: regular rate Rhythm: regular rhythm Skin General skin exam: no rashes or lesions noted Neuro General: patient oriented x3 Extrem Other: Patient showed me a picture of right middle finger swelling consistent with synovitis There is no active synovitis both hands and wrists exam today The right knee swelling, warmth and pain with any range of motion Office Procedures Joint Injection/Drain Joint Injection/Drain Primary Site: right knee Prep: site was prepped using sterile technique and ethochloride spray was applied Injected: 40 mg of, Kenalog and other (2 mL of 1% lidocaine) Approach Used: medial parapatellar Procedure: The patient tolerated the procedure well Coding Details: With the patient's consent the right knee was prepped with ChloraPrep and alcohol. The skin was anesthetized with 2 cc of 1% lidocaine. The knee was then injected with 40 mg of triamcinolone and 2 cc of I % lidocaine. The patient tolerated the procedure with no immediate adverse effects. 72527 - Large joint Procedure code (CPT) selection complete Results Reviewed Results Reviewed: Laboratory Tests MRI OF THE RIGHT HAND WITHOUT AND WITH CONTRAST ? CLINICAL INFORMATION: Seronegative arthritis. ? COMPARISON: X-rays of the right hand performed March 2018. MRI of the left hand ?performed same day. ? TECHNIQUE: ? MRI of the right hand was performed before and after contrast. 8 mL of ? Gadavist contrast was given intravenously for the contrast portion of ?? the exam. ? FINDINGS: ? The bones, joints and soft tissues are normal. ? There are no marginal erosions. There is no articular cartilage ? abnormality, marginal osteophytes or subchondral cysts. ? The muscles and tendons are normal.? IMPRESSION: ? ? Normal MRI of the right hand without and with contrast.? EXAMINATION: ? ? MRI HAND WITH AND WITHOUT CONTRAST, LEFT ? CLINICAL INFORMATION: ? Seronegative arthritis. Patient reports bilateral hand swelling right ? greater than left. ?COMPARISON: ? ? Prior x-rays of the hands March 2018. Additional MRI of the right ? ? hand performed same day. ? TECHNIQUE: ? ? MRI of the left hand was performed before and after contrast. 8 mL of ? ? Gadavist contrast was given intravenously for the contrast portion of ? ? the exam. FINDINGS: ? First carpometacarpal joint: There is cartilage heterogeneity, ? subchondral cystic change and small marginal osteophytes indicative of? mild to moderate osteoarthritis. Third metacarpophalangeal joint: There is a lobulated likely cystic-appearing focus within the distal metaphysis of the metacarpal. This most likely reflects an enthesopathic cyst. A cartilage lesion ?? here is no surrounding edema. There is no joint abnormality. ? There are no marginal erosions. There is no synovitis. The remaining bones, joints and soft tissues are normal. 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 Date of Service: 10/25/22 Procedure(s): XR hand wrist RT Accession Number(s): [id number] EXAMINATION: XR HAND/WRIST, RIGHT CLINICAL INFORMATION: Pain.? COMPARISON: None available.? TECHNIQUE: PA, lateral, and oblique views of the right hand and wrist, together with a dedicated navicular view. FINDINGS: The bones and soft tissues are normal. No fracture. Alignment is anatomic. Joint spaces are maintained. No erosions or soft tissue calcifications.? XR/XR hand wrist RT IMPRESSION: Normal radiographs of the hand and wrist. ? ? EXAMINATION: XR HAND/WRIST, LEFT ? CLINICAL INFORMATION: Pain.? ? COMPARISON: None available.? ? TECHNIQUE: PA, lateral, and oblique views of the left hand and wrist, together with a dedicated navicular view. ? FINDINGS: The bones and soft tissues are normal. No fracture. Alignment is anatomic. Joint spaces are maintained. No erosions or soft tissue calcifications.? ? IMPRESSION: Normal radiographs of the hand and wrist. ? Assessment & Plan Assessment & Plan (1) Seronegative rheumatoid arthritis: Comment: seroneg dx 2019 Methotrexate- September 2018 advanced to 25 mg 2022 Code(s): M06.00 - Rheumatoid arthritis without rheumatoid factor, unspecified site Plan: This is a 63-year-old female with seronegative arthritis who presents for follow-up. On methotrexate 25 mg weekly, split dose. Patient continues to have intermittent episodes of synovitis. On exam today she has significant synovitis affecting right knee. Will need to add DMARDs. Discussed risks and benefits of Enbrel. Patient agreed to proceed. Will start prior authorization for Enbrel.. Continue with methotrexate 25 mg weekly split dose plus folic acid 1 mg daily With patient's consent, right knee was injected with Kenalog today. Check bilateral knee x-rays Infectious screening: Hepatitis panel and T spot -ve 2022 Labs before next visit in 3 months (2) Fibromyalgia: Code(s): M79.7 - Fibromyalgia Plan: Stable. Failed Lyrica and Cymbalta in the past. Continue baclofen. Reinforced the importance of daily activity and adequate sleep. Continue follow up with mental health. (3) [facility] methotrexate user: Code(s): Z79.899 - Other prison (current) drug therapy Plan: Monitor safety labs Plan I spent 26 minutes reviewing patient's chart, evaluating patient, ordering diagnostic workup, counseling patient and documenting in the chart Orders: Orders Comprehensive Met. Panel 3 Months M06.00 - Rheumatoid arthritis without rheumatoid factor, unspecified site, Z79.899 - Other prison (current) drug therapy XR knee RT 3V Today M06.00 - Rheumatoid arthritis without rheumatoid factor, unspecified site AMB Joint Injection/Aspiration Today M06.00 - Rheumatoid arthritis without rheumatoid factor, unspecified site Complete Blood Count Auto Diff 3 Months M06.00 - Rheumatoid arthritis without rheumatoid factor, unspecified site, Z79.899 - Other prison (current) drug therapy C Reactive Protein 3 Months M06.00 - Rheumatoid arthritis without rheumatoid factor, unspecified site, Z79.899 - Other prison (current) drug therapy Erythrocyte Sedimentation Rate 3 Months M06.00 - Rheumatoid arthritis without rheumatoid factor, unspecified site, Z79.899 - Other intermediate school teacher (current) drug therapy XR knee LT 3V Today M06.00 - Rheumatoid arthritis without rheumatoid factor, unspecified site XR knee standing BI Today M06.00 - Rheumatoid arthritis without rheumatoid factor, unspecified site Medications: Refilled methotrexate sodium Take 5 tabs in the am and 5 tabs in the pm once a week 25 mg (10 x 2.5 mg) PO QWEEK 128 tabs 0RF M06.00 - Rheumatoid arthritis without rheumatoid factor, unspecified site folic acid 1 mg PO DAILY 90 tabs 1RF M06.00 - Rheumatoid arthritis without rheumatoid factor, unspecified site Discontinued insulin syringe-needle U-100 (BD Insulin Syringe) Discontinued Reason: Doctor's Order Use weekly with methotrexate 10 ea 2RF methotrexate sodium (PF) Discontinued Reason: Doctor's Order 25 mg subcut QWEEK 8 mL 1RF Coding Level of Care Code Est Pt Level 4 (76769) Diagnoses Seronegative rheumatoid arthritis M06.00 Fibromyalgia M79.7 supervisor intermediates methotrexate user Z79.899 CPT Codes Coding - 62643 Large joint: 85993 - Large joint ([id number])
[2023-10-17 13:55] VITALS: BP 136/68; PULSE 88; O2SAT 96; BMI 29.0
== END 2023-10-17 14:42 | disposition home or self-care (01) ==
PROVIDERS: Visit Provider Student in an Organized Health Care Education/Training Program
DX: M06.09 Rheumatoid arthritis without rheumatoid factor, multiple sites (principal); M79.7 Fibromyalgia; Z79.899 Other long term (current) drug therapy
CPT/HCPCS: 20610; 99214

== ENCOUNTER 2023-10-17 13:49 | Outpatient (REF) | payer OTHER, SELFPAY ==
--- NOTE | ~2023-10-17 | XR_ITS ---
EXAMINATION: XR AP STANDING XR KNEES, BILATERAL CLINICAL INFORMATION: Rheumatoid arthritis without rheumatoid factor unspecified. COMPARISON: 08/03/2020 TECHNIQUE: AP standing view of bilateral knees. Lateral and sunrise views of the left knee. AP tunnel, 2 sunrise and 2 lateral views of the right knee. FINDINGS: Right Knee: The bones are diffusely demineralized. Small suprapatellar effusion. Moderate degenerative changes in the medial and patellofemoral compartments with narrowing and hypertrophic change. Left Knee: The bones are diffusely demineralized. Mild degenerative changes in the medial and patellofemoral compartments with mild joint space narrowing and marginal osteophytes. Trace suprapatellar effusion. XR/XR knee RT 4V IMPRESSION: Mild degenerative changes in the bilateral knees.
--- NOTE | ~2023-10-17 | XR_ITS ---
EXAMINATION: XR AP STANDING XR KNEES, BILATERAL CLINICAL INFORMATION: Rheumatoid arthritis without rheumatoid factor unspecified. COMPARISON: 08/03/2020 TECHNIQUE: AP standing view of bilateral knees. Lateral and sunrise views of the left knee. AP tunnel, 2 sunrise and 2 lateral views of the right knee. FINDINGS: Right Knee: The bones are diffusely demineralized. Small suprapatellar effusion. Moderate degenerative changes in the medial and patellofemoral compartments with narrowing and hypertrophic change. Left Knee: The bones are diffusely demineralized. Mild degenerative changes in the medial and patellofemoral compartments with mild joint space narrowing and marginal osteophytes. Trace suprapatellar effusion. XR/XR knee LT 4V IMPRESSION: Mild degenerative changes in the bilateral knees.
== END 2023-10-17 13:50 | disposition home or self-care (01) ==
LOC: HO.XRAY 13:49
PROVIDERS: Visit Provider Student in an Organized Health Care Education/Training Program
DX: M06.00 Rheumatoid arthritis without rheumatoid factor, unspecified site (principal); Z79.899 Other long term (current) drug therapy; M79.7 Fibromyalgia
CPT/HCPCS: 20610; 73564; 99212

== ENCOUNTER 2024-01-16 12:09 | Outpatient (REF) | payer OTHER, SELFPAY ==
[2024-01-16 12:24] LABS: MANUAL DIFF FLAG NO
[2024-01-16 12:36] LABS: Basophils Absolute Auto 0.1 X10*3/uL (0.0-0.2); Basophils Percent Auto 0.8 % (0-2); Eosinophils Absolute Auto 0.2 X10*3/uL (0.0-0.4); Eosinophils Percent Auto 2.4 % (0-4); Hematocrit 34.8 % (37.0-47.0); Hemoglobin 11.5 g/dl (12.0-16.0); Imm Gran Abs Auto 0.02 X10*3/uL (0.00-0.03); Imm Gran Pct Auto 0.3 % (0.0-0.4); Lymphocytes Percent Auto 31.2 % (20-40); Mean Corpuscular Hemoglobin 30.9 pg (27.0-33.0); Mean Corpuscular Volume 93.5 fL (80.0-98.0); Mean Platelet Volume 9.6 fL (9.4-12.3); Monocytes Absolute Auto 0.4 X10*3/uL (0.1-1.2); Monocytes Percent Auto 5.9 % (2-11); Neutrophils Absolute Auto 3.8 x10*3/uL (2.0-8.3); Neutrophils Percent Auto 59.4 % (45-73); Platelet Count 273 X10*3/uL (160-400); Red Blood Count 3.72 X10*6/uL (4.20-5.50); Red Cell Distribution Width 14.2 % (11.0-16.0); White Blood Count 6.3 X10*3/uL (4.8-10.8)
[2024-01-16 12:55] LABS: Alanine Aminotransferase 12 U/L (0-31); Albumin Level 3.8 g/dL (3.5-5.0); Alkaline Phosphatase 70 U/L (39-117); Anion Gap 11 (12-20); Aspartate Amino Transferase 17 U/L (5-31); Bilirubin Total 0.4 mg/dL (0.0-1.0); Blood Urea Nitrogen 17 mg/dL (9-16); C Reactive Protein < 0.10 mg/dL (< or = 0.50); Calcium 9.1 mg/dL (8.4-10.2); Carbon Dioxide 27 mmol/L (22-29); Chloride 110 mmol/L (96-108); Estimated Glomerular Filt Rate > 60; Glucose Random 97 mg/dL (60-115); Potassium 4.3 mmol/L (3.3-5.1); Sodium 144 mmol/L (135-145); Total Protein 6.5 g/dL (6.5-8.0)
[2024-01-16 13:14] LABS: Erythrocyte Sedimentation Rate 11 MM/HR (0-20)
== END 2024-01-16 12:10 | disposition home or self-care (01) ==
LOC: HO.LAB 12:09
PROVIDERS: PCP Internal Medicine; Visit Provider Student in an Organized Health Care Education/Training Program
DX: M06.00 Rheumatoid arthritis without rheumatoid factor, unspecified site (principal); Z79.899 Other long term (current) drug therapy
CPT/HCPCS: 36415; 80053; 85025; 85652; 86140

== ENCOUNTER 2024-01-18 13:34 | Outpatient (AMB) | payer OTHER, SELFPAY ==
--- NOTE | 2024-01-18 13:40 | MHC.OFFVIS ---
Vital Signs 01/18/24 13:46 Height 4 ft 11 in Weight 143 lb 1.28 oz BMI 28.9 BP 122/60 Blood Pressure Location Rt brachial Position Sitting Pulse 69 Pulse Source Pulse Oximeter Pulse Oximetry (%) 98 Oxygen Delivery Method Room Air Intake Visit Reasons: RA/CM Intake Note: Patient presents for RA. Allergies No Known Allergies Allergy (Verified 01/18/24 13:45) Medication List - Last Reconciled 01/18/24 by Sandra Olson MD baclofen 10 mg PO DAILY celecoxib 100 mg PO BID clonazepam 0.5 mg PO BID Enbrel SureClick (etanercept) 50 mg subcut QWEEK NS fluoxetine 40 mg PO DAILY PRN folic acid 1 mg PO DAILY methotrexate sodium 25 mg (10 x 2.5 mg) PO QWEEK multivitamin 1 tab PO DAILY omeprazole 20 mg PO DAILY zolpidem 10 mg PO BEDTIME PRN HPI Comments Details: 63yoF presents for follow-up of seronegative rheumatoid arthritis. On methotrexate 25 mg weekly split dose, Enbrel was added last visit. States that she is doing much better overall. She does not have any pain or swelling of her fingers. Right knee injection done last visit was very helpful. Overall doing much better but feels that her fibromyalgia is worse. She is having diffuse back pain. [facility] Surgical History Hx of gastric bypass Family History Father Osteoarthritis Social History Alcohol intake: never Patient Tobacco Use Status: Never used Tobacco e-Cigarette/Vaping Use: Never Used [place] [facility] [place] pain, Denies arthralgias, Denies joint swelling and Denies stiffness Physical Exam Vital Signs: Last Vital Signs Pulse 69 01/18/24 13:46 BP 122/60 01/18/24 13:46 Pulse Ox 98 01/18/24 13:46 Oxygen Delivery Method Room Air 01/18/24 13:46 BMI result Body Mass Index 28.9 Const General: cooperative, healthy appearing and comfortable Nutritional Appearance: overweight Orientation/consciousness: patient oriented x3 Limitations: no limitations HEENT Head: Yes normocephalic and Yes atraumatic Resp Effort & Inspection: normal respiratory effort and able to speak in complete sentences Cardio Rate: regular rate Rhythm: regular rhythm Skin General skin exam: no rashes or lesions noted Neuro General: patient oriented x3 Extrem Other: No active synovitis today Multiple paraspinal muscle tenderness Results Reviewed Results Reviewed: Laboratory Tests MRI OF THE RIGHT HAND WITHOUT AND WITH CONTRAST ? CLINICAL INFORMATION: Seronegative arthritis. ? COMPARISON: X-rays of the right hand performed March 2018. MRI of the left hand ?performed same day. ? TECHNIQUE: ? MRI of the right hand was performed before and after contrast. 8 mL of ? Gadavist contrast was given intravenously for the contrast portion of ?? the exam. ? FINDINGS: ? The bones, joints and soft tissues are normal. ? There are no marginal erosions. There is no articular cartilage ? abnormality, marginal osteophytes or subchondral cysts. ? The muscles and tendons are normal.? IMPRESSION: ? ? Normal MRI of the right hand without and with contrast.? EXAMINATION: ? ? MRI HAND WITH AND WITHOUT CONTRAST, LEFT ? CLINICAL INFORMATION: ? Seronegative arthritis. Patient reports bilateral hand swelling right ? greater than left. ?COMPARISON: ? ? Prior x-rays of the hands March 2018. Additional MRI of the right ? ? hand performed same day. ? TECHNIQUE: ? ? MRI of the left hand was performed before and after contrast. 8 mL of ? ? Gadavist contrast was given intravenously for the contrast portion of ? ? the exam. FINDINGS: ? First carpometacarpal joint: There is cartilage heterogeneity, ? subchondral cystic change and small marginal osteophytes indicative of? mild to moderate osteoarthritis. Third metacarpophalangeal joint: There is a lobulated likely cystic-appearing focus within the distal metaphysis of the metacarpal. This most likely reflects an enthesopathic cyst. A cartilage lesion ?? here is no surrounding edema. There is no joint abnormality. ? There are no marginal erosions. There is no synovitis. The remaining bones, joints and soft tissues are normal. 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 Date of Service: 10/25/22 Procedure(s): XR hand wrist RT Accession Number(s): [id number] EXAMINATION: XR HAND/WRIST, RIGHT CLINICAL INFORMATION: Pain.? COMPARISON: None available.? TECHNIQUE: PA, lateral, and oblique views of the right hand and wrist, together with a dedicated navicular view. FINDINGS: The bones and soft tissues are normal. No fracture. Alignment is anatomic. Joint spaces are maintained. No erosions or soft tissue calcifications.? XR/XR hand wrist RT IMPRESSION: Normal radiographs of the hand and wrist. ? ? EXAMINATION: XR HAND/WRIST, LEFT ? CLINICAL INFORMATION: Pain.? ? COMPARISON: None available.? ? TECHNIQUE: PA, lateral, and oblique views of the left hand and wrist, together with a dedicated navicular view. ? FINDINGS: The bones and soft tissues are normal. No fracture. Alignment is anatomic. Joint spaces are maintained. No erosions or soft tissue calcifications.? ? IMPRESSION: Normal radiographs of the hand and wrist. ? Assessment & Plan Assessment & Plan (1) Seronegative rheumatoid arthritis: Comment: seroneg dx 2018 Methotrexate- September 2018 advanced to 25 mg 2022 Enbrel added 09/2023 effective Code(s): M06.00 - Rheumatoid arthritis without rheumatoid factor, unspecified site Category: Medical Plan: This is a 63-year-old female with seronegative arthritis who presents for follow-up. On methotrexate 25 mg weekly, split dose. Enbrel was added last visit with significant improvement. No active synovitis on exam today. Continue current meds Labs before next visit in 3 month (2) Fibromyalgia: Code(s): M79.7 - Fibromyalgia Category: Medical Plan: Stable. Failed Lyrica and Cymbalta in the past. Continue baclofen. Reinforced the importance of daily activity. Patient walks but not regularly. Advised regular exercise. Consider other low-impact exercises such as swimming, aquatherapy, yoga (3) watermaster methotrexate user: Code(s): Z79.899 - Other skilled nursing (current) drug therapy Category: Medical Plan: Monitor safety labs Plan I spent 26 minutes reviewing patient's chart, evaluating patient, ordering diagnostic workup, counseling patient and documenting in the chart Orders: Orders Complete Blood Count Auto Diff 3 Months M06.00 - Rheumatoid arthritis without rheumatoid factor, unspecified site, Z79.899 - Other skilled nursing (current) drug therapy Comprehensive Met. Panel 3 Months M06.00 - Rheumatoid arthritis without rheumatoid factor, unspecified site, Z79.899 - Other skilled nursing (current) drug therapy Erythrocyte Sedimentation Rate 3 Months M06.00 - Rheumatoid arthritis without rheumatoid factor, unspecified site, Z79.899 - Other skilled nursing (current) drug therapy C Reactive Protein 3 Months M06.00 - Rheumatoid arthritis without rheumatoid factor, unspecified site, Z79.899 - Other termite control service representative (current) drug therapy Medications: Refilled methotrexate sodium Split dose into 5 tabs twice 12-24 hours apart 25 mg (10 x 2.5 mg) PO QWEEK 130 tabs 0RF M06.00 - Rheumatoid arthritis without rheumatoid factor, unspecified site Coding Level of Care Code Est Pt Level 4 (05129) Complex EM visit Add On G2211 Diagnoses Seronegative rheumatoid arthritis M06.00 Fibromyalgia M79.7 long-term methotrexate user Z79.899
[2024-01-18 13:46] VITALS: BP 122/60; PULSE 69; O2SAT 98; BMI 28.9
== END 2024-01-18 14:01 | disposition home or self-care (01) ==
PROVIDERS: PCP Internal Medicine; Visit Provider Student in an Organized Health Care Education/Training Program
DX: M06.00 Rheumatoid arthritis without rheumatoid factor, unspecified site (principal); M79.7 Fibromyalgia; Z79.899 Other long term (current) drug therapy
CPT/HCPCS: 99214; G2211

== ENCOUNTER → 2024-01-18 13:34 | Outpatient (BNVA) | payer OTHER, SELFPAY | PROVIDERS: PCP Internal Medicine; Visit Provider Student in an Organized Health Care Education/Training Program | DX: M06.00 Rheumatoid arthritis without rheumatoid factor, unspecified site (principal); M79.7 Fibromyalgia; Z79.899 Other long term (current) drug therapy | CPT/HCPCS: 99212 ==

== ENCOUNTER 2024-06-27 15:38 | Outpatient (REF) | payer OTHER, SELFPAY ==
[2024-06-27 15:48] LABS: MANUAL DIFF FLAG NO
[2024-06-27 17:07] LABS: Basophils Percent Auto 0.6 % (0-2); Eosinophils Absolute Auto 0.2 X10*3/uL (0.0-0.4); Eosinophils Percent Auto 3.4 % (0-4); Hematocrit 34.2 % (37.0-47.0); Hemoglobin 11.1 g/dl (12.0-16.0); Imm Gran Abs Auto 0.01 X10*3/uL (0.00-0.03); Imm Gran Pct Auto 0.2 % (0.0-0.4); Lymphocytes Absolute Auto 2.2 X10*3/uL (1.2-4.9); Lymphocytes Percent Auto 36.4 % (20-40); Mean Corpuscular HGB Conc 32.5 g/dl (31.0-35.0); Mean Corpuscular Hemoglobin 30.4 pg (27.0-33.0); Mean Corpuscular Volume 93.7 fL (80.0-98.0); Mean Platelet Volume 10.5 fL (9.4-12.3); Monocytes Absolute Auto 0.4 X10*3/uL (0.1-1.2); Monocytes Percent Auto 5.8 % (2-11); Neutrophils Absolute Auto 3.3 x10*3/uL (2.0-8.3); Neutrophils Percent Auto 53.6 % (45-73); Platelet Count 286 X10*3/uL (160-400); Red Blood Count 3.65 X10*6/uL (4.20-5.50); White Blood Count 6.2 X10*3/uL (4.8-10.8)
[2024-06-27 17:35] LABS: Alanine Aminotransferase 15 U/L (0-31); Albumin Level 3.8 g/dL (3.5-5.0); Alkaline Phosphatase 74 U/L (39-117); Anion Gap 9 (12-20); Aspartate Amino Transferase 22 U/L (5-31); Bilirubin Total 0.3 mg/dL (0.0-1.0); Blood Urea Nitrogen 14 mg/dL (9-16); C Reactive Protein < 0.10 mg/dL (< or = 0.50); Calcium 8.6 mg/dL (8.4-10.2); Carbon Dioxide 29 mmol/L (22-29); Chloride 107 mmol/L (96-108); Estimated Glomerular Filt Rate > 60; Glucose Random 85 mg/dL (60-115); Potassium 4.4 mmol/L (3.3-5.1); Sodium 141 mmol/L (135-145); Total Protein 6.6 g/dL (6.5-8.0)
[2024-06-27 18:04] LABS: Erythrocyte Sedimentation Rate 14 MM/HR (0-20)
== END 2024-06-27 15:39 | disposition home or self-care (01) ==
LOC: HO.LAB 15:38
PROVIDERS: PCP Internal Medicine; Visit Provider Student in an Organized Health Care Education/Training Program
DX: M06.00 Rheumatoid arthritis without rheumatoid factor, unspecified site (principal); Z79.899 Other long term (current) drug therapy
CPT/HCPCS: 36415; 80053; 85025; 85652; 86140

== ENCOUNTER 2024-07-02 08:17 | Outpatient (AMB) | payer OTHER, SELFPAY ==
--- NOTE | 2024-07-02 08:30 | A.OFFVIS_ITS ---
Vital Signs 07/02/24 08:32 Height 4 ft 11 in Weight 145 lb 4.554 oz BMI 29.3 BP 120/70 Blood Pressure Location Rt brachial Position Sitting Respiration 16 Pulse 56 Pulse Source Pulse Oximeter Pulse Oximetry (%) 99 Oxygen Delivery Method Room Air Intake Visit Reasons: RA/CM Intake Note: Patient presents for RA. Allergies No Known Allergies Allergy (Verified 07/02/24 08:32) Medication List - Last Reconciled 07/02/24 by Sandra Olson MD baclofen 10 mg PO DAILY clonazepam 0.5 mg PO BID Enbrel SureClick (etanercept) 50 mg subcut QWEEK NS fluoxetine 40 mg PO DAILY PRN multivitamin 1 tab PO DAILY naproxen 500 mg PO DAILY PRN omeprazole 20 mg PO DAILY zolpidem 10 mg PO BEDTIME PRN HPI Comments Details: 64yoF presents for follow-up of seronegative rheumatoid arthritis. On Enbrel 50 mg once weekly. Doing well overall. She states that she gets intermittent joint pains at this time of year particularly right knee. She states that she was prescribed naproxen by her PCP at some time. She states that she takes it 3 or or 4 times a month. [facility] Surgical History Hx of gastric bypass Family History Father Osteoarthritis Social History Alcohol intake: never Patient Tobacco Use Status: Never used Tobacco e-Cigarette/Vaping Use: Never Used Review of Systems [facility] [place] arthralgias and Reports stiffness Physical Exam Vital Signs: Last Vital Signs Pulse 56 07/02/24 08:32 Resp 16 07/02/24 08:32 BP 120/70 07/02/24 08:32 Pulse Ox 99 07/02/24 08:32 Oxygen Delivery Method Room Air 07/02/24 08:32 BMI result Body Mass Index 29.3 Const General: cooperative, healthy appearing and comfortable Nutritional Appearance: overweight Orientation/consciousness: patient oriented x3 Limitations: no limitations HEENT Head: Yes normocephalic and Yes atraumatic Resp Effort & Inspection: normal respiratory effort and able to speak in complete sentences Cardio Rate: regular rate Rhythm: regular rhythm Skin General skin exam: no rashes or lesions noted Neuro General: patient oriented x3 Extrem Other: No active synovitis today Limited right knee flexion, pain with flexion and extension, minimal warmth but no swelling Assessment & Plan Assessment & Plan (1) Seronegative rheumatoid arthritis: Comment: seroneg dx 2018 Methotrexate- September 2018 advanced to 25 mg 2022, self DC when Enbrel started summer 2023 Enbrel added 09/2023 effective Code(s): M06.00 - Rheumatoid arthritis without rheumatoid factor, unspecified site Category: Medical Plan: This is a 64-year-old female with seronegative rheumatoid arthritis who presents for follow-up. Doing well overall on Enbrel 50 mg subcutaneously weekly. Her pains are related to degenerative arthritis and fibromyalgia. Can use naproxen 500 mg once daily sparingly as needed for pains Continue Enbrel 50 mg subcutaneously weekly Labs before next visit in 6 months (2) Fibromyalgia: Code(s): M79.7 - Fibromyalgia Category: Medical Plan: Stable. Failed Lyrica and Cymbalta in the past. Continue baclofen. Reinforced the importance of daily activity. I provided patient with a booklet on how to manage fibromyalgia (3) Screening for osteoporosis: Code(s): Z13.820 - Encounter for screening for osteoporosis Category: Medical Plan: Patient is 64 now and has history of RA. Will screen for osteoporosis with a DEXA scan (4) High risk medication use: Code(s): Z79.899 - Other terminal clerk (current) drug therapy Category: Medical Plan: Side effects of Enbrel were discussed with the patient in detail including increased risk of infection, demyelinating disease, reactivation of latent TB, possible increased risk of solid and skin tumors. Patient fully aware. Advised patient to seek medical care [facility] if patient has an infection and advised patient to stop the medication until the infection is resolved. Plan I spent 26 minutes reviewing patient's chart, evaluating patient, ordering diagnostic workup, counseling patient and documenting in the chart Orders: Orders C Reactive Protein 6 Months M06.00 - Rheumatoid arthritis without rheumatoid factor, unspecified site Erythrocyte Sedimentation Rate 6 Months M06.00 - Rheumatoid arthritis without rheumatoid factor, unspecified site Hepatitis A,B,C Profile 6 Months Z11.59 - Encounter for screening for other viral diseases XR DEXA axial skeleton 11/21/24 M81.0 - Age-related osteoporosis without current pathological fracture Complete Blood Count Auto Diff 6 Months M06.00 - Rheumatoid arthritis without rheumatoid factor, unspecified site Comprehensive Met. Panel 6 Months M06.00 - Rheumatoid arthritis without rheumatoid factor, unspecified site T Spot TB 6 Months Z11.7 - Encounter for testing for latent tuberculosis infection Medications: New naproxen 500 mg PO DAILY PRN 30 tabs 0RF pain Discontinued folic acid Discontinued Reason: Doctor's Order 1 mg PO DAILY 90 tabs 1RF M06.00 - Rheumatoid arthritis without rheumatoid factor, unspecified site methotrexate sodium Split dose into 5 tabs twice 12-24 hours apart Discontinued Reason: Doctor's Order 25 mg (10 x 2.5 mg) PO QWEEK 130 tabs 0RF M06.00 - Rheumatoid arthritis without rheumatoid factor, unspecified site Coding Level of Care Code Est Pt Level 4 (01670) Complex EM visit Add On G2211 Diagnoses Seronegative rheumatoid arthritis M06.00 Fibromyalgia M79.7 Screening for osteoporosis Z13.820 High risk medication use Z79.899
[2024-07-02 08:32] VITALS: BP 120/70; PULSE 56; RESP 16; O2SAT 99; BMI 29.3
== END 2024-07-02 08:45 | disposition home or self-care (01) ==
PROVIDERS: PCP Internal Medicine; Visit Provider Student in an Organized Health Care Education/Training Program
DX: M06.00 Rheumatoid arthritis without rheumatoid factor, unspecified site (principal); M79.7 Fibromyalgia; Z13.820 Encounter for screening for osteoporosis; Z79.899 Other long term (current) drug therapy
CPT/HCPCS: 99214; G2211

== ENCOUNTER → 2024-07-02 08:17 | Outpatient (BNVA) | payer OTHER, SELFPAY | PROVIDERS: PCP Internal Medicine; Visit Provider Student in an Organized Health Care Education/Training Program | DX: M79.7 Fibromyalgia (principal); M06.00 Rheumatoid arthritis without rheumatoid factor, unspecified site; Z79.899 Other long term (current) drug therapy | CPT/HCPCS: 99212 ==

== ENCOUNTER 2024-12-25 11:07 | Outpatient (REF) | payer OTHER, SELFPAY ==
[2024-12-25 11:21] LABS: MANUAL DIFF FLAG NO
[2024-12-25 11:45] LABS: Basophils Absolute Auto 0.1 X10*3/uL (0.0-0.2); Basophils Percent Auto 0.8 % (0-2); Eosinophils Absolute Auto 0.2 X10*3/uL (0.0-0.4); Eosinophils Percent Auto 2.9 % (0-4); Hematocrit 33.2 % (37.0-47.0); Hemoglobin 10.8 g/dl (12.0-16.0); Imm Gran Abs Auto 0.02 X10*3/uL (0.00-0.03); Imm Gran Pct Auto 0.3 % (0.0-0.4); Lymphocytes Absolute Auto 1.8 X10*3/uL (1.2-4.9); Lymphocytes Percent Auto 30.7 % (20-40); Mean Corpuscular HGB Conc 32.5 g/dl (31.0-35.0); Mean Corpuscular Hemoglobin 29.8 pg (27.0-33.0); Mean Corpuscular Volume 91.7 fL (80.0-98.0); Mean Platelet Volume 10.6 fL (9.4-12.3); Monocytes Absolute Auto 0.4 X10*3/uL (0.1-1.2); Monocytes Percent Auto 7.3 % (2-11); Neutrophils Absolute Auto 3.4 x10*3/uL (2.0-8.3); Platelet Count 259 X10*3/uL (160-400); Red Blood Count 3.62 X10*6/uL (4.20-5.50); Red Cell Distribution Width 14.3 % (11.0-16.0); White Blood Count 5.9 X10*3/uL (4.8-10.8)
--- OUTSIDE RECORDS SUMMARY | 2024-12-25 12:02 | XMS_ITS | Patient Health Record ---
Author Organization [facility] Address [address] [place] [address] Care Team Providers Care Last Repairer Helper Name Role Phone Ag HEAD, Sukhdev Primary Care Provider UnavailIla Canas Unavailable [phone] Reason For Referral No Information Medications Medication SIG (Take, Route, Fr equency, Duration) Notes Start Date End Date Status Vagifem 10 MCG 1 tablet Vaginal TWI CE WEEKLY for 90 days 03/11/2015 Active Social History Tobacco Use: Social History Observation Description Date Details (start date - stop date) Never Smoker NA - NA Tobacco Use/Smoking Question Answer Notes Are you a nonsmoker Alcohol Screen (Audit-C) Question Answer Notes Did you have a drink contain ing alcohol in the past year? Yes How often did you have a dri nk containing alcohol in the past year? Monthly or less (1 point) How many drinks did you have on a typical day when you were drinking in the past year? 1 or 2 drinks (0 point) Points 1 Interpretation Negative Sexual History Question Answer Notes Had sex in the past 12 months (vaginal, oral, or anal)? Yes with Men only Prevention strategies discussed: Other Problems Problem Type SNOMED Code ICD Code Onset Dates Problem Status W/U Status Risk Notes Problem Female genital organ symptoms (330305179) Unspecified symptom associated with female genital organs (625.9) Active confirmed Diag Problem Menopausal symptom (38960698) Symptomatic menopausal or female climacteric states (627.2) Active confirmed Major Problem Osteoarthritis (233175382) Osteoarthrosis, unspecified whether generalized or localized, unspecified site (715.90) Active confirmed Major Problem Muscle pain (58581339) Unspecified myalgia and myositis (729.1) Active confirmed Major Problem Gynecological examination normal (053759537553252) Routine gynecological examination (V72.31) Active confirmed Problem Screening for malignant neoplasm of colon (894227466) Special screening for malignant neoplasms, colon (V76.51) Active confirmed Major Plan Of Treatment No Information Insurance Providers Payer Name Payer Address Payer Phone Subscriber Number Group Number Insured Name Patient Relationship to Insured Coverage Start Date Coverage End Date [employer] [address] [place] [address] [id number] TERENCE WHITT Self - patient is the insured Medical (General) History Medical History History ICD Code Unspecified symptom associated with fema le genital organs 625.9 Osteoarthrosis, unspecified whether generalized or localized, unspecified site 715.90 Unspecified myalgia and myositis 729.1 Symptomatic menopausal or female climact frank states 627.2 Surgical History Surgery Date(Month/Year) Colonoscopy Hospitalization History Reason Date(Month/Year) 3 Vaginal Deliveries
[2024-12-25 12:27] LABS: Erythrocyte Sedimentation Rate 16 MM/HR (0-20)
[2024-12-25 14:24] LABS: Alanine Aminotransferase 13 U/L (0-31); Albumin Level 3.8 g/dL (3.5-5.0); Alkaline Phosphatase 67 U/L (39-117); Anion Gap 7 (12-20); Aspartate Amino Transferase 22 U/L (5-31); Bilirubin Total 0.4 mg/dL (0.0-1.0); Blood Urea Nitrogen 17 mg/dL (9-16); C Reactive Protein < 0.10 mg/dL (< or = 0.50); Calcium 8.7 mg/dL (8.4-10.2); Carbon Dioxide 28 mmol/L (22-29); Chloride 111 mmol/L (96-108); Estimated Glomerular Filt Rate > 60; Glucose Random 80 mg/dL (60-115); Sodium 142 mmol/L (135-145); Total Protein 6.5 g/dL (6.5-8.0)
[2024-12-26 05:13] LABS: HBS Num1 0.51 mIU/mL (0-7.99); HBc Num1 0.08 S/CO (0.00-0.79); HBsAGNum1 0.38 S/CO (0.00-0.99); Hepatitis A Antibody IgM 0.36 Index (0-0.79); Hepatitis B Core Antibody Nonreactive (Nonreactive); Hepatitis B Surface Antigen Negative (Negative); ~HepC Num1 0.17 S/CO (0.00-0.79); ~Hepatitis A Antibody IgM Nonreactive (Nonreactive); ~Hepatitis B Surface Antibody NONREACTIVE (Nonreactive); ~Hepatitis C Antibody Nonreactive (Nonreactive)
[2024-12-27 21:18] LABS: TS Negative Control Passed; TS Panel A 0; TS Panel B 0; TS Positive Control Passed; TSpotTB Negative (Negative)
== END 2024-12-25 11:08 | disposition home or self-care (01) ==
LOC: HO.LAB 11:07
PROVIDERS: PCP Internal Medicine; Visit Provider Student in an Organized Health Care Education/Training Program
DX: Z11.59 Encounter for screening for other viral diseases (principal); Z11.7 Encounter for testing for latent tuberculosis infection; M06.00 Rheumatoid arthritis without rheumatoid factor, unspecified site
CPT/HCPCS: 36415; 80053; 85025; 85652; 86140; 86481; 86704; 86706; 86709; 86803; 87340

== ENCOUNTER → 2025-01-01 09:15 | Outpatient (BNV) | payer OTHER, SELFPAY | PROVIDERS: PCP Internal Medicine; Visit Provider Radiology Diagnostic Radiology | DX: E28.39 Other primary ovarian failure (principal) | CPT/HCPCS: 77080 ==

== ENCOUNTER 2025-01-01 09:19 | Outpatient (REF) | payer OTHER, SELFPAY ==
--- NOTE | ~2025-01-01 | MM_ITS ---
EXAMINATION: DXA BONE DENSITY AXIAL HISTORY: M81.0 - Age-related osteoporosis without current pathological fracture TECHNIQUE: Gen One Cig Dual energy absorptiometry (DEXA) of the lumbar spine, total left hip, and femoral neck was performed. COMPARISON: There are no prior studies for comparison. FINDINGS: The bone mineral density of the lumbar spine is 0.871, corresponding to a T-score of -2.6, and a Z-score of -1.1. This is indicative of osteoporosis. The bone mineral density of the left total hip is 0.872, corresponding to a T-score of -1.1, and a Z-score of 0.1. This is indicative of osteopenia. The bone mineral density of the left femoral neck is 0.844, corresponding to a T-score of -1.4, and a Z-score of 0.0. This is indicative of osteopenia. FRACTURE RISK: The FRAX index suggests a risk of major osteoporotic fracture of 10.8%, and of hip fracture 1.2%. MM/XR DEXA axial skeleton IMPRESSION: Based on bone mineral density, and according to World Health Organization (WHO) criteria, the diagnosis is consistent with osteoporosis. All bone density values are in grams per centimeter squared (g/cm2). Statistically, 68% of repeat scans fall within 1 SD (+/- 0.010 g/cm2 for AP spine L1-L4) and 1 SD (+/- 0.012 g/cm2 for femur total) FRAX is a trademark of the [employer], a World Health Organization (WHO) Collaborating Center. Electronically signed by: Bhaskar Hernandez MD 01/01/2025 10:04 AM EDT
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
== END 2025-01-01 09:20 | disposition home or self-care (01) ==
LOC: HO.MAMMO 09:19
PROVIDERS: PCP Internal Medicine; Visit Provider Student in an Organized Health Care Education/Training Program
DX: M81.0 Age-related osteoporosis without current pathological fracture (principal); M06.00 Rheumatoid arthritis without rheumatoid factor, unspecified site; M79.7 Fibromyalgia; G56.03 Carpal tunnel syndrome, bilateral upper limbs; Z79.620 Long term (current) use of immunosuppressive biologic
CPT/HCPCS: 77080; 99212

== ENCOUNTER 2025-01-01 10:48 | Outpatient (AMB) | payer OTHER, SELFPAY ==
--- NOTE | 2025-01-01 11:14 | A.OFFVIS_ITS ---
Vital Signs 01/01/25 11:21 Height 4 ft 11 in Weight 149 lb 14.629 oz BMI 30.3 BP 124/70 Blood Pressure Location Lt brachial Position Sitting Pulse 62 Pulse Source Pulse Oximeter Pulse Oximetry (%) 100 Oxygen Delivery Method Room Air Intake Visit Reasons: RA Intake Note: Patient presents for RA follow up. Patient c/o bilateral hand pain, stiffness, tingling and numbness. Allergies No Known Allergies Allergy (Verified 01/01/25 11:20) Medication List - Last Reconciled 01/01/25 by Nguyen Cannon MD baclofen 10 mg PO DAILY clonazepam 0.5 mg PO BID Enbrel SureClick (etanercept) 50 mg subcut QWEEK NS fluoxetine 40 mg PO DAILY PRN multivitamin 1 tab PO DAILY naproxen 500 mg PO DAILY PRN omeprazole 20 mg PO DAILY zolpidem 10 mg PO BEDTIME PRN HPI Comments Details: Patient is a 64-year-old female with anxiety and depression, hiatal hernia it by GERD, seronegative rheumatoid arthritis and fibromyalgia here today for follow up Interval History: Patient last seen 07/02/[address] Olson. At that time she was on Enbrel 50 mg weekly for her seronegative rheumatoid arthritis and doing well. At that visit she was complaining of intermittent knee pain especially during the cold months but otherwise was doing well. Exam was consistent with degenerative arthritis and no changes were made to her medication Today, Notes intermittent swelling to her finger tips numbness and tingling of hands at night right knee pain whole body aches Rheumatologic History: seroneg dx 2018 Methotrexate- September 2018 advanced to 25 mg 2022, self DC when Enbrel started summer 2023 Enbrel added 09/2023 effective Current Rheumatology Medication(s): Enbrel 50mg SC weekly PFSH Surgical History Hx of gastric bypass Family History Father Osteoarthritis Social History Alcohol intake: never Patient Tobacco Use Status: Never used Tobacco e-Cigarette/Vaping Use: Never Used Review of Systems Const Details: Review of Systems Constitutional: Denies fever, chills, weight loss ENT: Denies vision changes, eye pain or eye redness, dental caries, dry mouth GI: Denies nausea, vomiting, diarrhea, abdominal pain, change in BM Pulm: Denies SOB, FORD, hemoptysis, wheezing Cards: Denies chest pain, palpitations Skin: Denies Raynaud's, rash, nail changes, photosensitivity, FREIGHT TRUCKER: Denies headaches, weakness, paresthesias, recurrent falls MSK: as per HPI All other systems reviewed and are unremarkable except noted above Physical Exam Vital Signs: Last Vital Signs Pulse 62 01/01/25 11:21 BP 124/70 01/01/25 11:21 Pulse Ox 100 01/01/25 11:21 Oxygen Delivery Method Room Air 01/01/25 11:21 BMI result Body Mass Index 30.3 Vital signs reviewed Physical Examination CONSTITUITIONAL Patient alert and cooperative. Well appearing and in no apparent painful distress HEENT Conjunctiva and sclera clear. ?No lymphadenopathy. ? CHEST/RESPIRATORY SYSTEM Normal respiratory effort and able to speak in complete sentences. ?Clear to auscultation bilaterally. ?No crackles, rales, rhonchi, wheezes heard. CARDIAC SYSTEM Regular rate and rhythm. ?S1 and S2 heard no murmurs. ?Radial pulses intact bilaterally MSK Hands: ?Able to make a fist. No synovitis noted to the MCPs, PIPs or DIPs. ?No tenderness to palpation of these joints. Herbeden's nodes Wrists: ?Full range of motion at the wrists without pain. ?No tenderness to palpation or synovitis noted to the wrists. TTP of the ECU tendons on the right Elbows: Full range of motion without pain. No tenderness, weakness, swelling, increased warmth or erythema. TTP of the bilateral lateral epidondyles Shoulders: decreased ROM Knees: ?Full range of motion. ?No tenderness, swelling, increased warmth or erythema.?No effusion or crepitations Ankles: Full range of motion. ?No tenderness, swelling, increased warmth or erythema.? Feet: ?Negative squeeze test. ?No tenderness to palpation or swelling of the MTPs. Tender points:?Tenderness to palpation of the bilateral trapezius, supraspinatus, greater trochanters, anterior costochondral junctions, bilateral gluteal areas, bilateral suboccipital muscle insertions SKIN Skin intact without rashes. Results Reviewed Results Reviewed: Laboratory Tests 12/25/24 11:19 WBC 5.9 RBC 3.62 L Hgb 10.8 L Hct 33.2 L Plt Count 259 ESR 16 Sodium 142 Potassium 4.0 Chloride 111 H Carbon Dioxide 28 BUN 17 H Creatinine 0.66 AST 22 ALT 13 Alkaline Phosphatase 67 C-Reactive Protein < 0.10 Laboratory Tests 12/25/24 11:19 Hepatitis A IgM Ab Nonreactive Hep Bs Antigen Negative Hep Bs Antibody NONREACTIVE Hep B Core Total Ab Nonreactive Hepatitis C Ab (EIA) Nonreactive TB Test (T-Spot) Com Negative DEXA 12/2024 FINDINGS: The bone mineral density of the lumbar spine is 0.871, corresponding to a T-score of -2.6, and a Z-score of -1.1. This is indicative of osteoporosis. The bone mineral density of the left total hip is 0.872, corresponding to a T-score of -1.1, and a Z-score of 0.1. This is indicative of osteopenia. The bone mineral density of the left femoral neck is 0.844, corresponding to a T-score of -1.4, and a Z-score of 0.0. This is indicative of osteopenia. Assessment & Plan Assessment & Plan (1) Seronegative rheumatoid arthritis: Comment: seroneg dx 2018 Methotrexate- September 2018 advanced to 25 mg 2022, self DC when Enbrel started summer 2023 Enbrel added 09/2023 effective Code(s): M06.00 - Rheumatoid arthritis without rheumatoid factor, unspecified site Category: Medical Plan: #Seronegative RA Patient is a 64-year-old female with seronegative rheumatoid arthritis here today for follow up. Currently in remission on Enbrel monotherapy. Patient did show me pictures of swelling to her fingertips. There was no involvement of the actual joint but just swelling to the pulp of her fingers. Unsure of what this could be related to. Reassured her that this is unlikely to be related to her rheumatoid arthritis Plan - Enbrel 50mg SC weekly - RTC 6 months - Labs before visit: CBC, CMP, ESR, CRP (2) Fibromyalgia: Code(s): M79.7 - Fibromyalgia Category: Medical Plan: #Fibromyalgia Patient with fibromyalgia evidenced by complains of whole-body pain, and multiple positive tender points on examination. We will trial low-dose gabapentin Plan - Gabapentin 100mg PO nightly (3) Bilateral carpal tunnel syndrome: Code(s): G56.03 - Carpal tunnel syndrome, bilateral upper limbs Category: Medical Plan: #Bilateral carpal tunnel syndrome Patient complain of bilateral hand numbness and tingling. 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 Plan: #Long-term Use of TNF Inhibitors: Etanercept Discussed with the patient the benefits and risks of TNF inhibitors for the management of the rheumatic condition Benefits include reduce pain, maintenance of remission and reduction of flares as well as ?progression of the disease Risks include injection sites/infusion reactions, serious infections (such as bacterial infections, opportunistic infections), malignancy, delaminating syndromes, autoimmune phenomena, CHF exacerbations, palmar plantar psoriasis and cytopenias Recommended rotating injection sites, and holding medication during and for up to 1 week after resolution of a febrile illness or open skin wound Plan I spent 35 minutes reviewing the record and labs, taking a history, examining the patient, discussing the treatment plan, ordering diagnostic work up and documenting in the medical record Orders: Orders Complete Blood Count Auto Diff 6 Months M06.00 - Rheumatoid arthritis without rheumatoid factor, unspecified site Erythrocyte Sedimentation Rate 6 Months M06.00 - Rheumatoid arthritis without rheumatoid factor, unspecified site NE electromyogram (EMG) Today G56.03 - Carpal tunnel syndrome, bilateral upper limbs NE nerve conduction velocity Today G56.03 - Carpal tunnel syndrome, bilateral upper limbs Comprehensive Met. Panel 6 Months M06.00 - Rheumatoid arthritis without rheumatoid factor, unspecified site C Reactive Protein 6 Months M06.00 - Rheumatoid arthritis without rheumatoid factor, unspecified site Medications: New gabapentin 100 mg PO BEDTIME 90 caps 1RF M79.7 - Fibromyalgia Coding Level of Care Code Est Pt Level 4 (75548) Complex EM visit Add On G2211 Diagnoses Seronegative rheumatoid arthritis M06.00 Fibromyalgia M79.7 Bilateral carpal tunnel syndrome G56.03 Encounter for monitoring of etanercept therapy Z51.81; Z79.620
[2025-01-01 11:21] VITALS: BP 124/70; PULSE 62; O2SAT 100; BMI 30.3
== END 2025-01-01 11:54 | disposition home or self-care (01) ==
PROVIDERS: PCP Internal Medicine; Visit Provider Student in an Organized Health Care Education/Training Program
DX: M06.00 Rheumatoid arthritis without rheumatoid factor, unspecified site (principal); M79.7 Fibromyalgia; G56.03 Carpal tunnel syndrome, bilateral upper limbs; Z51.81 Encounter for therapeutic drug level monitoring; Z79.620 Long term (current) use of immunosuppressive biologic
CPT/HCPCS: 99214; G2211

== ENCOUNTER 2025-02-20 12:49 | Outpatient (REF) | payer OTHER, SELFPAY ==
--- NOTE | 2025-02-20 12:54 | EMG_ITS ---
Chief complaint: History of RA. Bilateral hand pain and numbness, especially when waking in the morning. Reason for referral: Evaluate for Carpal Tunnel Syndrome Referred by: Dr. Cannon Procedure done: Bilateral upper extremities NCS/EMG Precautions and/or limitations: None The limb temperature was monitored continuously and remained between 32-36 degrees C during the performance of the NCS. Ulnar motor NCS was performed with moderate elbow flexion between 70-90 degrees, with across-elbow distance of 10 cm. Nerve Conduction Studies Anti Sensory Summary Table ?Stim Site NR Onset (ms) Norm Onset (ms) Peak (ms) Norm Peak (ms) O-P Amp (?V) Norm O-P Amp Site1 Site2 Delta-0 (ms) Dist (cm) Fernie (m/s) Norm Fernie (m/s) Left Median Anti Sensory (2nd Digit) Wrist ? 3.3 4.5 <3.6 46.9 >10 Wrist 2nd Digit 3.3 14.0 42 Right Median Anti Sensory (2nd Digit) Wrist ? 3.7 4.7 <3.6 24.0 >10 Wrist 2nd Digit 3.7 14.0 38 Right Radial Anti Sensory (Thumb) Forearm ? 1.9 2.4 <3.1 13.3 Forearm Thumb 1.9 0.0 Left Ulnar Anti Sensory (5th Digit) Wrist ? 2.7 3.7 <3.7 48.5 >15.0 Wrist 5th Digit 2.7 14.0 52 Right Ulnar Anti Sensory (5th Digit) Wrist ? 3.0 3.9 <3.7 24.1 >15.0 Wrist 5th Digit 3.0 14.0 47 Motor Summary Table ?Stim Site NR Onset (ms) Norm Onset (ms) O-P Amp (mV) Norm O-P Amp iAmp (mV) Amp (1st) (%) Site1 Site2 Delta-0 (ms) Dist (cm) Fernie (m/s) Norm Fernie (m/s) Left Median Motor (Abd Poll Brev) Wrist ? 3.8 <3.9 13.9 >4.5 17.2 100.0 Elbow Wrist 3.5 18.5 53 >45 Elbow ? 7.3 13.0 16.1 93.5 Right Median Motor (Abd Poll Brev) Wrist ? 4.5 <3.9 4.9 >4.5 5.8 100.0 Elbow Wrist 3.9 19.0 49 >45 Elbow ? 8.4 5.8 7.2 118.4 Left Ulnar Motor (Abd Dig Minimi) Wrist ? 3.0 <3.0 10.0 >5 12.3 100.0 B Elbow Wrist 3.1 19.0 61 >45 B Elbow ? 6.1 9.6 12.1 96.0 A Elbow B Elbow 1.6 10.0 62 >45 A Elbow ? 7.7 9.2 11.7 92.0 Right Ulnar Motor (Abd Dig Minimi) Wrist ? 2.9 <3.0 8.8 >5 11.6 100.0 B Elbow Wrist 3.1 16.0 52 >45 B Elbow ? 6.0 7.2 9.7 81.8 A Elbow B Elbow 1.7 10.0 59 >45 A Elbow ? 7.7 6.7 9.1 76.1 Right Ulnar (FDI) Motor (FDI) Wrist ? 4.0 <3.0 6.0 >5 7.5 100.0 B Elbow Wrist 3.3 16.0 48 >45 B Elbow ? 7.3 4.1 5.3 68.3 A Elbow B Elbow 1.6 10.0 62 >45 A Elbow ? 8.9 2.8 3.6 46.7 EMG ?Side Muscle Nerve Root Ins Act Fibs Psw Amp Dur Poly Recrt Int Pat Comment Right 1stDorInt Ulnar C8-T1 Nml Nml Nml Nml Nml 0 Nml Complete Right FlexCarpiUln Ulnar C8,T1 Nml Nml Nml Nml Nml 0 Nml Complete Right Biceps Musculocut C5-6 Nml Nml Nml Nml Nml 0 Nml Complete Right Triceps Radial C6-7-8 Nml Nml Nml Nml Nml 0 Nml Complete Right Deltoid Axillary C5-6 Nml Nml Nml Nml Nml 0 Nml Complete Left 1stDorInt Ulnar C8-T1 Nml Nml Nml Nml Nml 0 Nml Complete Left FlexCarRad Median C6-7 Nml Nml Nml Nml Nml 0 Nml Complete Left Biceps Musculocut C5-6 Nml Nml Nml Nml Nml 0 Nml Complete Left Triceps Radial C6-7-8 Nml Nml Nml Nml Nml 0 Nml Complete Left Deltoid Axillary C5-6 Nml Nml Nml Nml Nml 0 Nml Complete Paraspinal EMG ?Side Muscle Nerve Root Ins Act Fibs Psw Comment Right Cervical Upper Rami Nml Nml Nml Right Cervical Mid Rami Nml Nml Nml Right Cervical Lower Rami Nml Nml Nml Left Cervical Upper Rami Nml Nml Nml Left Cervical Mid Rami Nml Nml Nml Left Cervical Lower Rami Nml Nml Nml FINDINGS: Right median motor nerve showed prolonged distal latency, normal amplitude and normal conduction velocity. Right ulnar motor nerve, recording at FDI, showed prolonged distal latency, smaller amplitude above elbow but normal conduction velocity. Bilateral median sensory nerves showed prolonged peak latencies. Right ulnar sensory nerve showed prolonged peak latencies. All other nerves tested were within normal. Concentric needle EMG was performed in selected muscles of the upper extremity and cervical paraspinals. Study did not reveal signs of electric abnormalities as shown in the table above. IMPRESSION: 1. This is an abnormal study. 2. There is electrodiagnostic evidence for right moderate-severe and left mild median neuropathy at the wrist, consistent with carpal tunnel syndrome. 3. There is electrodiagnostic evidence for right ulnar neuropathy, suspected at the elbow. 4. There is no electrodiagnostic evidence for brachial plexopathy, or cervical radiculopathy. Thank you for your kind referral. Iram Gruber MD, KITTY Board Certified, [place] Board [employer] and Rehabilitation (ABPMR) Board Certified, [place] Board of Electrodiagnostic Medicine (ABEM) CODIN [phone] MTDD
--- OUTSIDE RECORDS SUMMARY | 2025-02-20 12:59 | XMS_ITS | Clinical Summary ---
Author Organization [facility] Address [address] [place] [address] Care Team Providers Care Yard Engineer Name Role Phone Unavailable Primary Care Provider Unavailabl e Source Comments PLEASE NOTE, if this patient is a minor, it may be UNLAWFUL to discuss sensitive information that is contained in these records (such as FAMILY PLANNING, MENTAL HEALTH or SUBSTANCE ABUSE) with the minor patient's parent or other person without the patient's specific authorization.[facility] Allergies No known active allergies Medications meloxicam (MOBIC) 15 mg tabletIndications :Fibromyalgia,Car pal tunnel syndrome, unspecified laterality Take 1 Tab by mouth once daily. 30 Tab 3 6 Active traMADol (ULTRAM) 50 mg tablet Per specialist 3 6 Active rizatriptan (MAXALT) 5 mg tabletIndications :migraine Take 5 mg by mouth once as needed for migraine. May repeat in 2 hours if needed. Do not take more than 6 tablets in 24 hours. Indications: Migraine Active omeprazole (PRILOSEC) [address] capsuleIndication s:Gastroesophagea l reflux disease without esophagitis Take 1 Cap by mouth every morning before breakfast. Do not crush or chew. 30 Cap 2 6 Active sertraline (ZOLOFT) 100 mg tablet Take 1 Tab by mouth once daily 7 Active hydrOXYzine HCl (ATARAX) 25 mg tablet Take 1 Tab by mouth nightly at bedtime as needed for sleep 7 Active clonazePAM (KLONOPIN) 0.5 mg tabletIndications :Anxiety Take 1 Tab by mouth 2 (two) times daily as needed for anxiety 7 Active cloNIDine HCl (CATAPRES) 0.1 mg tabletIndications :Essential hypertension 1 7 Active cyclobenzaprine (FLEXERIL) 10 mg tabletIndications :Fibromyalgia TK 1 T PO TID PRN 5 7 Active HYDROcodone-aceta minophen (NORCO) 5-325 mg per tablet TK 1 T PO Q 6 H FOR 7 DAYS PRN 0 7 Active LORazepam (ATIVAN) 0.5 mg tablet TK 1 T PO D PRF SEVERE ANXIETY 1 7 Active propranolol (INDERAL LA) 60 mg 24 hr capsuleIndication s:Essential hypertension TAKE 1 CAPSULE BY MOUTH DAILYDO NOT BREAK, CRUSH, OR CHEW 30 Cap 8 Active Active Problems Problem Noted Date Diagnosed Date Polyarthralgia 03/30/2018 Overview (03/30/2018): Followed by [facility]. Last seen 03/29/18 - Treated with Lyrica and Meloxicam. 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 Pradip Butts MD [facility]. History of Helicobacter pylori infection 016 Fibromyalgia 10/12/2015 CTS (carpal tunnel syndrome) 10/12/2015 Overview (10/12/2015): bilateral Osteoarthritis of right knee 10/12/2015 Obesity 10/12/2015 H/O colonoscopy. At [facility] 2009. Repeat in 10ys. due 2019. 10/12/2015 H/O mammogram. Goes to [facility]. Last Mar 2015. WNL 10/12/2015 Fasciculations 10/12/2015 Depressive disorder, not elsewhere classified Arthropathy Insomnia Immunizations Immunization Administration Dates Next Due PPD 12/05/2016 Family History Medical History Relation Name Comments Bipolar disorder Brother 1 Diabetes Brother 1 High Cholesterol Brother 1 Hypertension Brother 1 Hypertension Brother 2 Diabetes Brother 3 Hypertension Mother Hypertension Sister 2 Relation Name Status Comments Brother 1 Alive Brother 2 Alive Brother 3 Alive Daughter Alive Father Mother Alive Sister 1 Alive Sister 2 Alive Son 1 Alive Son 2 Alive Social History Tobacco Use Types Packs/Day Years Used Date Smoking Tobacco: Never Smokeless Tobacco: Never Alcohol Use Standard Drinks/Week Comments No 0 (1 standard drink = 0.6 oz pur e alcohol) Social Connections Answer Date Recorded Social Connections and Isolation 0 03/14/2019 Financial Resource Strain Answer Date R ecorded Financial Resource Strain 0 2018 Stress Answer Date Recorded Stress 0 03/14/2019 Physical Activity Answer Date Recorded Physical Activity 0 03/14/2019 Food Insecurity Answer Date Recorded Food 0 03/14/2019 Transportation Needs Answer Date Record ed Transportation 0 03/14/2019 Housing Stability Answer Date Recorded Housing 0 03/14/2019 Safety and Environment Answer Date Leandro rded Safety 0 03/14/2019 Utilities Answer Date Recorded Utilities 0 03/14/2019 Employment Answer Date Recorded Employment 0 03/14/2019 Comments No Sex and Gender Information Value Date Recorded Sex Assigned at Not on file Legal Sex Female 9:16 AM PST Gender Identity Not on file Sexual Orientation Not on file Occupation Industry Job Start Date Job End Date unemployed Not on file Not on file Not on file Last Filed Vital Signs Vital Sign Reading Time Taken Comments Blood Pressure 130/80 04/28/2017 1:53 PM EDT Pulse 76 04/28/2017 1:53 PM EDT Temperature 37.2 C (98.9 F) 04/28/2017 1:53 PM EDT Respiratory Rate 19 04/28/2017 1:53 PM EDT Oxygen Saturation 96% 09/08/2016 1:57 PM EST Inhaled Oxygen Concentration - - Weight 95.4 kg (210 lb 6.4 oz) 04/28/2017 1:53 P M EDT Height 152.4 cm (5') 04/28/2017 1:53 PM EDT Body Mass Index 41.09 04/28/2017 1:53 PM EDT Plan of Treatment Not on file Insurance [place]
--- OUTSIDE RECORDS SUMMARY | 2025-02-20 12:59 | XMS_ITS | Patient Health Record ---
Author Organization [employer] [facility] [place] Address [address] [place] [address] Care Team Providers Care Migratory Worker Name Role Phone Ag HEAD, Sukhdev Primary Care Provider UnavailIla Canas Unavailable [phone] Reason For Referral No Information Medications Medication SIG (Take, Route, Fr equency, Duration) Notes Start Date End Date Status Vagifem 10 MCG 1 tablet Vaginal TWI CE WEEKLY; Duration: 90 days 03/11/2015 Active Social History Tobacco [...] Risk Notes Problem Female genital organ symptoms (864070397) Unspecified symptom associated with female genital organs (625.9) Active confirmed Diag Problem Menopausal symptom (02940834) Symptomatic menopausal or female climacteric states (627.2) Active confirmed Major Problem Osteoarthritis (382259291) Osteoarthrosis, unspecified whether generalized or localized, unspecified site (715.90) Active confirmed Major Problem Muscle pain (08179047) Unspecified myalgia and myositis (729.1) Active confirmed Major Problem Gynecological examination normal (073464799349507) Routine gynecological examination (V72.31) Active confirmed Problem Screening for malignant neoplasm of colon (577885079) Special screening for malignant neoplasms, colon (V76.51) Active confirmed Major Plan Of Treatment No Information Insurance Providers Payer Name Payer Address Payer Phone Subscriber Number Group Number Insured Name Patient Relationship to Insured Coverage Start Date Coverage End Date [employer] [address] [place] [address] [id number] TERENCE WHITT Self - patient is the [...]
--- OUTSIDE RECORDS SUMMARY | 2025-02-20 12:59 | XMS_ITS | Clinical Summary ---
Author Organization [facility] Address [id number] [place] [id number] Care Team Providers Care Research Associate Molecular Biology Name Role Phone Patricia Oshea MD Primary Care Provider [phone] Allergies No known active allergies Medications FLUoxetine [...] Botox injections by Dr. Pradip Butts MD [facility]. CTS (carpal tunnel syndrome) 10/12/2015 [...] HISTORICAL TUBAL LIGATION BARIATRIC SURGERY 01/30/2019 PROCEDURE: VT LAPS GSTRC RSTRICTIV PX LONGITUDINAL GASTRECTOMY; COMMENT: [...] Botox injections by Dr. Pradip Butts MD [facility]. CTS (carpal tunnel syndrome) 10/12/2015 [...] (2 - Pfizer risk series) 11/30/2020 11/09/2020 Osteoporosis Screening (Bone Density Screening) 07/02/2022 Social Influencers of Health Screening 07/02/2022 Falls Risk Assessment 2024 Depression Screening 07/24/2024 Cervical Cancer Screening: Pap Smear 11/15/2024 11/15/2021 Influenza Vaccine (#1) 2025 , 05/06/2020, 05/16/2019, Additional history exists Colorectal Cancer [...] Health Maintenance Results * Lipid panel (09/23/2022) [facility] LDL/HDL Ratio 2 0 - 4 Triglycerides 80 0 - 150 mg/dL Cholesterol 139 0 - 200 mg/dL HDL 69 >=40 mg/dL LDL Cholesterol 54 0 - 100 mg/dL Blood Venous blood specimen / Unknown [facility] Provider LAB BLOOD ORDERABLES Denice l Result * Pap Smear (11/15/2021) Pathologist [facility] Pap smear No Interpretation , Abstracted [facility] Provider HEALTH MAINTENANCE Final Result * Colonoscopy (06/03/2021) [facility] Colonoscopy No Interpretation , Abstracted Anatomical Region Laterality Modality Other [facility] Provider HEALTH MAINTENANCE Final Result * Hepatitis C Screening (12/29/2020) [facility] Hepatitis C Screening Abstracted [facility] Provider HEALTH MAINTENANCE Final Result from Last 3 Months or Most Recently Relevant to Health Maintenance Care Teams Research Associate Molecular Biology Relationship Specialty Start Date End Date Patricia Oshea MD PCP - General Internal Medicine 03/17/22
== END 2025-02-20 12:50 | disposition home or self-care (01) ==
LOC: HO.NEURO 12:49
PROVIDERS: PCP Internal Medicine; Visit Provider Student in an Organized Health Care Education/Training Program
DX: G56.03 Carpal tunnel syndrome, bilateral upper limbs (principal)
CPT/HCPCS: 95886; 95911

== ENCOUNTER → 2025-02-20 12:54 | Outpatient (BNV) | payer OTHER, SELFPAY | PROVIDERS: PCP Internal Medicine; Visit Provider Physical Medicine & Rehabilitation | DX: G56.03 Carpal tunnel syndrome, bilateral upper limbs (principal); G56.21 Lesion of ulnar nerve, right upper limb | CPT/HCPCS: 95886; 95911 ==